=== PATIENT | female | born 1965 | race African-American/Black ===

== ENCOUNTER 2016-03-09 11:41 | Inpatient (IN) | payer MEDICARE ==
[2016-03-09] MEDS ORDERED: LORazepam INJ* 2 MG/ML 1 ML VIAL IV PRN (17:46)
[2016-03-09] MEDS ORDERED: diPHENhydraMINE PO* 25 MG PO PRN (17:46)
[2016-03-09] MEDS ORDERED: Nicotine Lozenge* 4 MG LOZENGE MT PRN (17:46)
[2016-03-09] MEDS ORDERED: HYDROcodone/ACETAMIN 5-325 MG* 1 TAB PO PRN (17:52)
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
[2016-03-09] MEDS: Albuterol HFA INHALER* 8 gm MDI INH SCH (19:47)
[2016-03-09] MEDS: Nicotine Inhaler* 10 MG AMP INH PRN (19:50)
[2016-03-09] MEDS ORDERED: Cariprazine Hcl [Vraylar] 3 MG PO SCH (21:00)
[2016-03-09] MEDS ORDERED: Asenapine(NF) 10 MG TAB.SL SL SCH ×2 (21:00)
[2016-03-09] MEDS: CARIPRAZINE HCL 3 MG PO SCH (21:12)
[2016-03-09] MEDS: Topiramate TAB(*) 100 MG PO SCH (21:13)
[2016-03-09] MEDS: lamoTRIgine TAB(*) 100 MG PO SCH (21:13)
[2016-03-09] MEDS: tiZANidine TAB* 2 MG PO SCH (21:14)
[2016-03-09] MEDS: Lithium Carbonate TAB* 300 MG PO SCH (21:15)
[2016-03-09] MEDS: Mometasone/Formoter 100/5 MDI INH SCH (21:16)
[2016-03-09] MEDS: ASENAPINE 10 MG SL SCH (21:17)
[2016-03-10] MEDS: Albuterol HFA INHALER* 8 gm MDI INH SCH ×4 (01:17→17:28)
[2016-03-10] MEDS: ASENAPINE 10 MG SL SCH ×2 (09:05→21:09)
[2016-03-10] MEDS: Fluticasone NASAL SPRAY 50MCG* 16 gm SPRAY BTL BOTH NARES SCH (09:05)
[2016-03-10] MEDS: Mometasone/Formoter 100/5 MDI INH SCH ×2 (09:06→21:12)
[2016-03-10] MEDS: Topiramate TAB(*) 100 MG PO SCH ×2 (09:08→21:09)
[2016-03-10] MEDS: tiZANidine TAB* 2 MG PO SCH ×4 (09:09→21:09)
[2016-03-10] MEDS: lamoTRIgine TAB(*) 100 MG PO SCH ×2 (09:10→21:11)
[2016-03-10] MEDS: Lithium Carbonate TAB* 300 MG PO SCH ×2 (09:10→21:10)
[2016-03-10] MEDS: Acetaminophen TAB* 325 MG PO PRN ×2 (09:10→21:21)
--- NOTE | 2016-03-10 11:01 | PN ---
Epilepsy Service Progress Note - Subjective Nova reports no episodes overnight. She was curious to know what was seen thus far on the EEG. She is visiting with her friend Rosemarie currently. Rosemarie does not believe she's ever noticed Nova's staring spells, but Nova herself has mentioned to Rosemarie that she has had them in her presence and Rosemarie just thought she was being reflective. - Medications Active Medications: Acetaminophen (Tylenol Tab*) 650 mg PO Q6H PRN PRN Reason: PAIN Last Admin: 03/10/16 09:10 Dose: 650 mg Acetaminophen/Hydrocodone Bitart ([place] 5-325 Tab*) 1 tab PO Q4H PRN PRN Reason: PAIN Albuterol (Ventolin Hfa Inhaler*) 2 puff INH Q6H [facility] Last Admin: 03/10/16 06:43 Dose: 2 puff Asenapine (Saphris(Nf)) 10 mg SL BID [facility] Last Admin: 03/10/16 09:05 Dose: 10 mg Diphenhydramine HCl (Benadryl Po*) 25 mg PO Q6H PRN PRN Reason: ITCHING Fluticasone Propionate (Flonase Nasal [place] 50mcg*) 2 spray BOTH NARES DAILY [facility] Last Admin: 03/10/16 09:05 Dose: 2 spray Lamotrigine (Lamictal Tab(*)) 100 mg PO BID [facility] Last Admin: 03/10/16 09:10 Dose: 100 mg [place] Carbonate ([place] Carbonate Tab*) 600 mg PO BID [facility] Last Admin: 03/10/16 09:10 Dose: 600 mg Lorazepam (Ativan Inj*) 1 mg IV Q8H PRN PRN Reason: Generalized Tonic Clonic Seizu Mometasone Furoate/Formoterol Fumar (Dulera 100/5 Mdi*) 2 puff INH BID [facility] Last Admin: 03/10/16 09:06 Dose: 2 puff Nicotine (Nicotine Inhaler*) 10 mg INH Q2H PRN PRN Reason: CRAVING Last Admin: 03/09/16 19:50 Dose: 10 mg Nicotine Polacrilex (Nicotine Lozenge*) 4 mg MT Q2H PRN PRN Reason: CRAVINGS Pto Cariprazine Hcl ([Vraylar] 3 Mg) 3 mg PO BEDTIME [facility] Last Admin: 03/09/16 21:12 Dose: 3 mg Tizanidine HCl (Zanaflex Tab*) 4 mg PO QID [facility] Last Admin: 03/10/16 09:09 Dose: 4 mg Topiramate (Topamax(*)) 200 mg PO BID [facility] Last Admin: 03/10/16 09:08 Dose: 200 mg EMU Diagnostics - Diagnostic Most Recent Vital Signs: Vital Signs: Temp Pulse Resp BP Pulse Ox 97.3 F 73 18 145/72 100 03/10/16 08:06 03/10/16 08:06 03/10/16 10:00 03/10/16 08:06 03/09/16 19:46 Interim video-EEG long-term monitoring report: #01 03/09: Normal organization, PDR 9 Hz. During sleep, there are rare to occasional epileptiform discharges with spike, polyspike and slow wave components. These are frontocentrally predominant, sometimes biased to the right or left hemisphere but not consistently. They last 0.5 seconds at most. In addition, during sleep, there are occasional sharp waves of low to moderate voltage noted in the left temporal region involving electrodes F7, T1 (FT9) and T3. These can have an arciform morphology and occur in in brief trains lasting 0.5 seconds. No events. No seizures. EMU Exam - Exam Physical/Neurological Exam: Physical Exam: General: Well appearing in no acute distress. MSK: no extremity deformities Neurological Exam: Mental Status: Awake and alert. Oriented to person, place, and time. Fluent. Comprehension intact. Affect appropriate. Cranial Nerves: Versions were full and without nystagmus. Facial musculature and sensation were symmetric. Hearing grossly intact to voice. Palate was upgoing bilaterally. Tongue was midline. Shoulder shrug was symmetric. Motor: Bulk, tone, and strength were normal throughout. There were no abnormal movements. Sensory: Sensation to light touch intact. Coordination: Finger to nose intact. 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 She has also been having episodes of seeing flashing lights followed by various events which can include hand movements or staring as well as headache. These events occur despite the current two drug regimen of antiseizure medications, and so the home doses will be continued at this time. No typical events recorded yet. Plan: * Continue predatory animal exterminator video EEG monitoring to capture typical episodes * Seizure precautions * Continue lamotrigine 100mg BID and Topamax 200mg BID * If no events by tomorrow morning, will sleep deprive patient tomorrow night * Other potential triggers include photic stimulation and being overheated * IV lorazepam as needed for GTC or prolonged seizure >3 mins * Continue other prescribed home meds. Will verify Saphris dosing with Dr Carter's office on Saturday
--- NOTE | 2016-03-10 11:13 | EEG ---
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 She currently experiences several types of spells, some of which have not previously been characterized on long-term monitoring. These include staring spells, spells of missing chunks of time and more recent spells of seeing flashes of light for a few seconds followed by various things which can include bilateral hand movements, staring and/or headache. She has also been having more headaches in general lately. Long-term monitoring was undertaken in order to characterize the above three spell types. Introduction: INTRODUCTION: The EEG was monitored from 21 scalp electrodes. Nineteen electrodes consisted of the standard parasagittal, temporal and midline leads of the International 10 -20 system. In addition, special electrodes FT9 and FT10 were placed. EEG data were recorded on an [employer] system with simultaneous MPEG-4 digital video recording of patient behavior. EEG recording was in a monopolar montage with all electrodes referenced to FCz. Significant behavioral events were signaled by an event button, or putative electrical seizure events were detected by a computer program. All EEG data were reviewed in their entirety on a monitor with reconstruction of montages and adjustments of sensitivity and filtering. Simultaneous patient behavior was viewed on an adjacent monitor and correlated with the EEG. - Medications Active Medications: Acetaminophen (Tylenol Tab*) 650 mg PO Q6H PRN PRN Reason: PAIN Last Admin: 03/10/16 09:10 Dose: 650 mg Acetaminophen/Hydrocodone Bitart ([place] 5-325 Tab*) 1 tab PO Q4H PRN PRN Reason: PAIN Albuterol (Ventolin Hfa Inhaler*) 2 puff INH Q6H [facility] Last Admin: 03/10/16 06:43 Dose: 2 puff Asenapine (Saphris(Nf)) 10 mg SL BID [facility] Last Admin: 03/10/16 09:05 Dose: 10 mg Diphenhydramine HCl (Benadryl Po*) 25 mg PO Q6H PRN PRN Reason: ITCHING Fluticasone Propionate (Flonase Nasal [place] 50mcg*) 2 spray BOTH NARES DAILY [facility] Last Admin: 03/10/16 09:05 Dose: 2 spray Lamotrigine (Lamictal Tab(*)) 100 mg PO BID [facility] Last Admin: 03/10/16 09:10 Dose: 100 mg [place] Carbonate ([place] Carbonate Tab*) 600 mg PO BID [facility] Last Admin: 03/10/16 09:10 Dose: 600 mg Lorazepam (Ativan Inj*) 1 mg IV Q8H PRN PRN Reason: Generalized Tonic Clonic Seizu Mometasone Furoate/Formoterol Fumar ([place] 100/5 Mdi*) 2 puff INH BID [facility] Last Admin: 03/10/16 09:06 Dose: 2 puff Nicotine (Nicotine Inhaler*) 10 mg INH Q2H PRN PRN Reason: CRAVING Last Admin: 03/09/16 19:50 Dose: 10 mg Nicotine Polacrilex (Nicotine Lozenge*) 4 mg MT Q2H PRN PRN Reason: CRAVINGS Pto Cariprazine Hcl ([Vraylar] 3 Mg) 3 mg PO BEDTIME [facility] Last Admin: 03/09/16 21:12 Dose: 3 mg Tizanidine HCl (Zanaflex Tab*) 4 mg PO QID [facility] Last Admin: 03/10/16 09:09 Dose: 4 mg Topiramate (Topamax(*)) 200 mg PO BID [facility] Last Admin: 03/10/16 09:08 Dose: 200 mg - Description Background: The waking background showed appropriate organization with clearly defined anterior-posterior voltage and frequency gradients. There was a defined posterior dominant rhythm of 9 Hertz, which was symmetrical and showed normal reactivity. Anteriorly, there was the expected pattern of lower voltage and more irregular theta and beta rhythms. The sleep background was appropriately organized with well-developed spindles and vertex waves indicative of stage 2 sleep. These sleep transients showed appropriate morphology and were bilaterally synchronous and symmetrical. Development of diffuse delta range frequencies with dropout of stage 2 architecture accompanied transition to slow wave sleep, and a lower voltage mixed frequency pattern associated with eye movements was consistent with REM sleep. Intericatal Epileptiform Activity: #01 03/09: During sleep, there are occasional epileptiform discharges with spike , polyspike and slow wave components. These are frontocentrally predominant, sometimes biased to the right or left hemisphere but not consistently. They last 0.5 seconds at most. In addition, during sleep, there are occasional sharp waves of low to moderate voltage noted in the left temporal region involving electrodes F7, T1 (FT9) and T3. These can have an arciform morphology and occur in in brief trains lasting 0.5 seconds. They are most consistent with wicket waveforms, a benign variant. #02 03/10: same as above except rare generalized discharge fragments seen during waking during early portion of recording. In addition, some discharge complexes last up to 1 second during drowsiness and sleep. They occur at a frequency of 3- 4 Hz. There are no clinical correlates to these discharges. #03 03/11: same as above, no changes #04 03/12: same as above, no changes #05 03/13: Same as above. Photic induction was performed and was negative for inducing an event. During 6 Hz stimulation on the second round of the photic protocol, there was a 1 second burst of generalized spike and polyspike discharges, but this was not seen during the first round of photic induction at 6Hz. #06 03/14: Same as above, no changes #07 03/15: Same as above, no changes. Ictal Activity: #01 03/09: None #02 03/10: No ictal activity The patient had 2 episodes of "overhwhelming sleep", where she suddenly felt extremely tired and reported she could not keep her eyes open. The first occurred at 14:08 and the second at 21:59. She was fully responsive during both of these episodes, able to state her name, follow commands and recall a phrase given to her to remember (green cat). There was no change in background EEG during these episodes. EEG did show a drowsy pattern prior to each of these. #03 03/11: No ictal activity, no patient events. Pt was sleep deprived the night of 03/11. #04 03/12: No ictal activity. Patient pressed the event button at 09:25, while she had been talking to her nurse, when she had the perception that she was having difficulty getting her words out. She was able to follow commands and remember a recall phrase. There was no EEG change with this event. #05 03/13: No ictal activity. Photic stimulation was performed and the patient reported feeling somewhat spacey at the beginning of the procedure, but did not have a full episode. Two rounds of photic were completed and during the second round, there was a 1 second burst of generalized discharges with spike and polyspike components at 6 Hz. No clinical correlate to this burst. #06 03/14: No ictal activity, no patient events. #07: 03/15: No ictal activity, no patient events. During the course of the monitoring session, the patient has mentioned on at least 2 occasions that she has woken up with her tongue bruised. There has been no occult seizure activity during the night witnessed to account for this oral trauma. - Impression Impression: This is an abnormal long-term monitoring session due to the presence of occasional generalized epileptiform discharges which are most frequent during drowsiness and sleep, but are also rarely seen during waking. There are no clinical correlates to this activity. These findings are consistent with the patient's known epilepsy, which is most likely a genetic generalized epilepsy. There were no seizures during the monitoring session. Events of overwhelming need to sleep and difficulty getting words out were captured during the session and were non-epileptic in nature. Unfortunately, episodes of staring and missing chunks of time were not captured during this session. In addition, the newer episodes of flashes of light followed by hand movements, staring or headache were not captured either. Therefore, the nature of these events remains uncertain. The monitoring session is inconclusive in this regard.
[2016-03-10] MEDS: Nicotine Inhaler* 10 MG AMP INH PRN ×2 (12:31→23:50)
[2016-03-10] MEDS: CARIPRAZINE HCL 3 MG PO SCH (21:11)
[2016-03-11] MEDS: Albuterol HFA INHALER* 8 gm MDI INH SCH ×3 (06:55→17:21)
[2016-03-11] MEDS: lamoTRIgine TAB(*) 100 MG PO SCH ×2 (08:30→19:54)
[2016-03-11] MEDS: Lithium Carbonate TAB* 300 MG PO SCH ×2 (08:31→19:54)
[2016-03-11] MEDS: tiZANidine TAB* 2 MG PO SCH ×4 (08:31→19:53)
[2016-03-11] MEDS: ASENAPINE 10 MG SL SCH ×2 (08:32→19:57)
[2016-03-11] MEDS: Topiramate TAB(*) 100 MG PO SCH ×2 (08:32→19:53)
[2016-03-11] MEDS: Mometasone/Formoter 100/5 MDI INH SCH ×2 (08:35→19:54)
[2016-03-11] MEDS: Fluticasone NASAL SPRAY 50MCG* 16 gm SPRAY BTL BOTH NARES SCH (08:36)
--- NOTE | 2016-03-11 10:39 | PN ---
Epilepsy Service Progress Note - Subjective Pt reports she slept well overall last night but did wake several times. She had 2 episodes of overwhelming sleepiness. These have been captured on prior LTMs as well. No staring episodes or episodes of missing chunks of time. - Medications Active Medications: Acetaminophen (Tylenol Tab*) 650 mg PO Q6H PRN PRN Reason: PAIN Last Admin: 03/10/16 21:21 Dose: 650 mg Acetaminophen/Hydrocodone Bitart ([place] 5-325 Tab*) 1 tab PO Q4H PRN PRN Reason: PAIN Albuterol (Ventolin Hfa Inhaler*) 2 puff INH Q6H [facility] Last Admin: 03/11/16 06:55 Dose: 2 puff Asenapine (Saphris(Nf)) 10 mg SL BID [facility] Last Admin: 03/11/16 08:32 Dose: 10 mg Diphenhydramine HCl (Benadryl Po*) 25 mg PO Q6H PRN PRN Reason: ITCHING Fluticasone Propionate (Flonase Nasal [place] 50mcg*) 2 spray BOTH NARES DAILY [facility] Last Admin: 03/11/16 08:36 Dose: 2 spray Lamotrigine (Lamictal Tab(*)) 100 mg PO BID [facility] Last Admin: 03/11/16 08:30 Dose: 100 mg [place] Carbonate ([place] Carbonate Tab*) 600 mg PO BID [facility] Last Admin: 03/11/16 08:31 Dose: 600 mg Lorazepam (Ativan Inj*) 1 mg IV Q8H PRN PRN Reason: Generalized Tonic Clonic Seizu Mometasone Furoate/Formoterol Fumar (Dulera 100/5 Mdi*) 2 puff INH BID [facility] Last Admin: 03/10/16 21:12 Dose: 2 puff Nicotine (Nicotine Inhaler*) 10 mg INH Q2H PRN PRN Reason: CRAVING Last Admin: 03/10/16 23:50 Dose: 10 mg Nicotine Polacrilex (Nicotine Lozenge*) 4 mg MT Q2H PRN PRN Reason: CRAVINGS Pto Cariprazine Hcl ([Vraylar] 3 Mg) 3 mg PO BEDTIME [facility] Last Admin: 03/10/16 21:11 Dose: 3 mg Tizanidine HCl (Zanaflex Tab*) 4 mg PO QID [facility] Last Admin: 03/11/16 08:31 Dose: 4 mg Topiramate (Topamax(*)) 200 mg PO BID [facility] Last Admin: 03/11/16 08:32 Dose: 200 mg EMU Diagnostics - Diagnostic Most Recent Vital Signs: Vital Signs: Temp Pulse Resp BP Pulse Ox 99.4 F 89 16 144/81 100 03/11/16 07:00 03/11/16 07:00 03/11/16 08:00 03/11/16 07:00 03/11/16 07:00 Interim video-EEG long-term monitoring report: #01 03/09: Normal organization, PDR 9 Hz. During sleep, there are rare to occasional epileptiform discharges with spike, polyspike and slow wave components. These are frontocentrally predominant, sometimes biased to the right or left hemisphere but not consistently. They last 0.5 seconds at most. In addition, during sleep, there are occasional sharp waves of low to moderate voltage noted in the left temporal region involving electrodes F7, T1 (FT9) and T3. These can have an arciform morphology and occur in in brief trains lasting 0.5 seconds. No events. No seizures. #02 03/10: Same as above except some rare fragmented generalized discharges noted during waking. Two episodes of overwhelming sleepiness not associated with any EEG changes. Pt remained fully responsive and able to remember a recall phrase. EMU Exam - Exam Physical/Neurological Exam: Physical Exam: General: Well appearing in no acute distress. MSK: no extremity deformities Neurological Exam: Mental Status: Awake and alert. Oriented to person, place, and time. Fluent. Comprehension intact. Affect appropriate. Cranial Nerves: Versions were full and without nystagmus. Facial musculature and sensation were symmetric. Hearing grossly intact to voice. Palate was upgoing bilaterally. Tongue was midline. Shoulder shrug was symmetric. Motor: Bulk, tone, and strength were normal throughout. There were no abnormal movements. Sensory: Sensation to light touch intact. Coordination: Finger to nose intact. 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 She has also been having episodes of seeing flashing lights followed by various events which can include hand movements or staring as well as headache. These events occur despite the current two drug regimen of antiseizure medications, and so the home doses will be continued at this time. No typical events recorded yet. Two events of overwhelming sleep captured, which have been previously characterized as non-epileptic. Plan: * Continue halfway video EEG monitoring to capture typical episodes * Seizure precautions * Continue lamotrigine 100mg BID and Topamax 200mg BID * Sleep deprive tonight to 4 hours. * Increased room temperature as being overheated can also trigger events for patient. * Other potential triggers include photic stimulation * IV lorazepam as needed for GTC or prolonged seizure >3 mins * Continue other prescribed home meds. Will verify Saphris dosing with Dr Carter's office on Saturday or Saturday if closed on
[2016-03-11] MEDS: Acetaminophen TAB* 325 MG PO PRN (17:25)
[2016-03-11] MEDS: CARIPRAZINE HCL 3 MG PO SCH (19:55)
[2016-03-11] MEDS: Nicotine Inhaler* 10 MG AMP INH PRN (23:28)
[2016-03-12] MEDS: Albuterol HFA INHALER* 8 gm MDI INH SCH ×6 (00:02→23:14)
[2016-03-12] MEDS: Mometasone/Formoter 100/5 MDI INH SCH ×2 (09:03→21:12)
[2016-03-12] MEDS: Fluticasone NASAL SPRAY 50MCG* 16 gm SPRAY BTL BOTH NARES SCH (09:06)
[2016-03-12] MEDS: Topiramate TAB(*) 100 MG PO SCH ×2 (09:06→21:12)
[2016-03-12] MEDS: Lithium Carbonate TAB* 300 MG PO SCH ×2 (09:07→21:11)
[2016-03-12] MEDS: lamoTRIgine TAB(*) 100 MG PO SCH ×2 (09:07→21:12)
[2016-03-12] MEDS: tiZANidine TAB* 2 MG PO SCH ×4 (09:08→21:11)
[2016-03-12] MEDS: Acetaminophen TAB* 325 MG PO PRN (09:08)
[2016-03-12] MEDS: ASENAPINE 10 MG SL SCH ×2 (09:09→21:14)
--- NOTE | 2016-03-12 10:16 | PN ---
Epilepsy Service Progress Note - Hernando Bhatt sleep deprived overnight and is tired today. She's aware she should not nap today. She noticed her tongue is bruised but isn't sure when this occurred. She is anxious to get back on her Saphris 20mg nighttime dose because she says she is seeing things, "crawly" things. Tried calling Dr. Carter's office this AM, no answer. - Medications Active Medications: Acetaminophen (Tylenol Tab*) 650 mg PO Q6H PRN PRN Reason: PAIN Last Admin: 03/12/16 09:08 Dose: 650 mg Acetaminophen/Hydrocodone Bitart ([place] 5-325 Tab*) 1 tab PO Q4H PRN PRN Reason: PAIN Albuterol (Ventolin Hfa Inhaler*) 2 puff INH Q6H [facility] Last Admin: 03/12/16 06:02 Dose: 2 puff Asenapine (Saphris(Nf)) 10 mg SL BID [facility] Last Admin: 03/12/16 09:09 Dose: 10 mg Diphenhydramine HCl (Benadryl Po*) 25 mg PO Q6H PRN PRN Reason: ITCHING Fluticasone Propionate (Flonase Nasal [place] 50mcg*) 2 spray BOTH NARES DAILY [facility] Last Admin: 03/12/16 09:06 Dose: 2 spray Lamotrigine (Lamictal Tab(*)) 100 mg PO BID [facility] Last Admin: 03/12/16 09:07 Dose: 100 mg [place] Carbonate ([place] Carbonate Tab*) 600 mg PO BID [facility] Last Admin: 03/12/16 09:07 Dose: 600 mg Lorazepam (Ativan Inj*) 1 mg IV Q8H PRN PRN Reason: Generalized Tonic Clonic Seizu Mometasone Furoate/Formoterol Fumar (Dulera 100/5 Mdi*) 2 puff INH BID [facility] Last Admin: 03/12/16 09:03 Dose: 2 puff Nicotine (Nicotine Inhaler*) 10 mg INH Q2H PRN PRN Reason: CRAVING Last Admin: 03/11/16 23:28 Dose: 10 mg Nicotine Polacrilex (Nicotine Lozenge*) 4 mg MT Q2H PRN PRN Reason: CRAVINGS Pto Cariprazine Hcl ([Vraylar] 3 Mg) 3 mg PO BEDTIME [facility] Last Admin: 03/11/16 19:55 Dose: 3 mg Tizanidine HCl (Zanaflex Tab*) 4 mg PO QID [facility] Last Admin: 03/12/16 09:08 Dose: 4 mg Topiramate (Topamax(*)) 200 mg PO BID [facility] Last Admin: 03/12/16 09:06 Dose: 200 mg EMU Diagnostics - Diagnostic Most Recent Vital Signs: Vital Signs: Temp Pulse Resp BP Pulse Ox 99.3 F 94 18 131/75 99 03/12/16 09:48 03/12/16 09:48 03/12/16 09:48 03/12/16 09:48 03/12/16 09:48 Interim video-EEG long-term monitoring report: #01 03/09: Normal organization, PDR 9 Hz. During sleep, there are rare to occasional epileptiform discharges with spike, polyspike and slow wave components. These are frontocentrally predominant, sometimes biased to the right or left hemisphere but not consistently. They last 0.5 seconds at most. In addition, during sleep, there are occasional sharp waves of low to moderate voltage noted in the left temporal region involving electrodes F7, T1 (FT9) and T3. These can have an arciform morphology and occur in in brief trains lasting 0.5 seconds. No events. No seizures. #02 03/10: Same as above except some rare fragmented generalized discharges noted during waking. Two episodes of overwhelming sleepiness not associated with any EEG changes. Pt remained fully responsive and able to remember a recall phrase. #03 03/11: Same as above, no events, no seizures EMU Exam - Exam Physical/Neurological Exam: Physical Exam: General: Well appearing in no acute distress. MSK: no extremity deformities Neurological Exam: Mental Status: Awake and alert. Oriented to person, place, and time. Fluent. Comprehension intact. Affect appropriate. Cranial Nerves: Versions were full and without nystagmus. Facial musculature and sensation were symmetric. Hearing grossly intact to voice. Palate was upgoing bilaterally. Tongue was midline. Shoulder shrug was symmetric. Motor: Bulk, tone, and strength were normal throughout. There were no abnormal movements. Sensory: Sensation to light touch intact. Coordination: Finger to nose intact. 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 She has also been having episodes of seeing flashing lights followed by various events which can include hand movements or staring as well as headache. These events occur despite the current two drug regimen of antiseizure medications, and so the home doses will be continued at this time. No typical events recorded yet. Two events of overwhelming sleep captured, which have been previously characterized as non-epileptic. She feels she might be deteriorating psychiatrically. Tried to get in touch with Dr. Carter's office but possibly closed due to [place] . Spoke with Dr Burr who said a 20mg dose at night would be reasonably, so will increase the nighttime dose and verify with Dr. Carter's office tomorrow. Plan: * Continue laundry route driver video EEG monitoring to capture typical episodes * Seizure precautions * Continue lamotrigine 100mg BID and Topamax 200mg BID * No naps today. * Continue increased room temperature as being overheated can also trigger events for patient. * Other potential triggers include photic stimulation - will perform tomorrow if no events today * IV lorazepam as needed for GTC or prolonged seizure >3 mins * Continue other prescribed home meds, increase hs Saphris to 20mg. Will verify Saphris dosing with Dr Carter's office on Saturday
[2016-03-12] MEDS ORDERED: Saline NASAL SPRAY 0.65%* BTL BOTH NARES PRN (10:17)
[2016-03-12] MEDS: Nicotine Inhaler* 10 MG AMP INH PRN (21:10)
[2016-03-12] MEDS: CARIPRAZINE HCL 3 MG PO SCH (21:16)
[2016-03-13] MEDS: Albuterol HFA INHALER* 8 gm MDI INH SCH ×3 (06:20→17:30)
[2016-03-13] MEDS: Fluticasone NASAL SPRAY 50MCG* 16 gm SPRAY BTL BOTH NARES SCH (09:09)
[2016-03-13] MEDS: Mometasone/Formoter 100/5 MDI INH SCH ×2 (09:10→21:11)
[2016-03-13] MEDS: Topiramate TAB(*) 100 MG PO SCH ×2 (09:11→21:11)
[2016-03-13] MEDS: lamoTRIgine TAB(*) 100 MG PO SCH ×2 (09:12→21:11)
[2016-03-13] MEDS: tiZANidine TAB* 2 MG PO SCH ×4 (09:12→21:10)
[2016-03-13] MEDS: Acetaminophen TAB* 325 MG PO PRN (09:13)
[2016-03-13] MEDS: Lithium Carbonate TAB* 300 MG PO SCH ×2 (09:13→21:10)
[2016-03-13] MEDS: Nicotine Inhaler* 10 MG AMP INH PRN ×2 (09:14→21:09)
[2016-03-13] MEDS: ASENAPINE 10 MG SL SCH ×2 (09:15→21:10)
[2016-03-13] MEDS ORDERED: Docusate CAP* 100 MG PO PRN (10:34)
--- NOTE | 2016-03-13 10:39 | PN ---
Epilepsy Service Progress Note - Subjective Pt had an event yesterday morning of feeling like she couldn't get her words out. No further events. Has not had a BM since 03/07. Sometimes takes Colace at home. - Medications Active Medications: Acetaminophen (Tylenol Tab*) 650 mg PO Q6H PRN PRN Reason: PAIN Last Admin: 03/13/16 09:13 Dose: 650 mg Acetaminophen/Hydrocodone Bitart ([place] 5-325 Tab*) 1 tab PO Q4H PRN PRN Reason: PAIN Albuterol (Ventolin Hfa Inhaler*) 2 puff INH Q6H [facility] Last Admin: 03/13/16 06:20 Dose: 2 puff Asenapine (Saphris(Nf)) 20 mg SL BEDTIME [facility] Last Admin: 03/12/16 21:14 Dose: 20 mg Asenapine (Saphris(Nf)) 10 mg SL DAILY [facility] Diphenhydramine HCl (Benadryl Po*) 25 mg PO Q6H PRN PRN Reason: ITCHING Fluticasone Propionate (Flonase Nasal [place] 50mcg*) 2 spray BOTH NARES DAILY [facility] Last Admin: 03/13/16 09:09 Dose: 2 spray Lamotrigine (Lamictal Tab(*)) 100 mg PO BID [facility] Last Admin: 03/13/16 09:12 Dose: 100 mg [place] Carbonate ([place] Carbonate Tab*) 600 mg PO BID [facility] Last Admin: 03/13/16 09:13 Dose: 600 mg Lorazepam (Ativan Inj*) 1 mg IV Q8H PRN PRN Reason: Generalized Tonic Clonic Seizu Mometasone Furoate/Formoterol Fumar (Dulera 100/5 Mdi*) 2 puff INH BID [facility] Last Admin: 03/13/16 09:10 Dose: 2 puff Nicotine (Nicotine Inhaler*) 10 mg INH Q2H PRN PRN Reason: CRAVING Last Admin: 03/13/16 09:14 Dose: 10 mg Nicotine Polacrilex (Nicotine Lozenge*) 4 mg MT Q2H PRN PRN Reason: CRAVINGS Pto Cariprazine Hcl ([Vraylar] 3 Mg) 3 mg PO BEDTIME [facility] Last Admin: 03/12/16 21:16 Dose: Not Given Sodium Chloride (Sodium Chloride 0.65% Nasal [place]*) 1 spray BOTH NARES Q4H PRN PRN Reason: DISCOMFORT Tizanidine HCl (Zanaflex Tab*) 4 mg PO QID [facility] Last Admin: 03/13/16 09:12 Dose: 4 mg Topiramate (Topamax(*)) 200 mg PO BID [facility] Last Admin: 03/13/16 09:11 Dose: 200 mg EMU Diagnostics - Diagnostic Most Recent Vital Signs: Vital Signs: Temp Pulse Resp BP Pulse Ox 98.5 F 81 18 137/83 100 03/13/16 07:46 03/13/16 07:46 03/13/16 08:00 03/13/16 07:46 03/13/16 07:46 Interim video-EEG long-term monitoring report: #01 03/09: Normal organization, PDR 9 Hz. During sleep, there are rare to occasional epileptiform discharges with spike, polyspike and slow wave components. These are frontocentrally predominant, sometimes biased to the right or left hemisphere but not consistently. They last 0.5 seconds at most. In addition, during sleep, there are occasional sharp waves of low to moderate voltage noted in the left temporal region involving electrodes F7, T1 (FT9) and T3. These can have an arciform morphology and occur in in brief trains lasting 0.5 seconds. No events. No seizures. #02 03/10: Same as above except some rare fragmented generalized discharges noted during waking. Two episodes of overwhelming sleepiness not associated with any EEG changes. Pt remained fully responsive and able to remember a recall phrase. #03 03/11: Same as above, no events, no seizures #04 03/12: Same as above. One event at ~0930 of feeling like she couldn't her words out. No associated EEG change. EMU Exam - Exam Physical/Neurological Exam: Physical Exam: General: Well appearing in no acute distress. MSK: no extremity deformities Neurological Exam: Mental Status: Awake and alert. Oriented to person, place, and time. Fluent. Comprehension intact. Affect appropriate. Cranial Nerves: Versions were full and without nystagmus. Facial musculature and sensation were symmetric. Hearing grossly intact to voice. Palate was upgoing bilaterally. Tongue was midline. Shoulder shrug was symmetric. Motor: Bulk, tone, and strength were normal throughout. There were no abnormal movements. Sensory: Sensation to light touch intact. Coordination: Finger to nose intact. 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 She has also been having episodes of seeing flashing lights followed by various events which can include hand movements or staring as well as headache. These events occur despite the current two drug regimen of antiseizure medications, and so the home doses will be continued at this time. No typical events recorded yet. Two events of overwhelming sleep captured, which have been previously characterized as non-epileptic. One event of not being able to get words out also captured, non-epileptic. Spoke with Dr Carter's office, dose of Saphris verified to be 10mg QAM and 20mg QPM. Plan: * Continue correction video EEG monitoring to capture typical episodes * Seizure precautions * Continue lamotrigine 100mg BID and Topamax 200mg BID * No naps today. * Continue increased room temperature as being overheated can also trigger events for patient. * Other potential triggers include photic stimulation - will perform tomorrow if no events today * IV lorazepam as needed for GTC or prolonged seizure >3 mins * Continue other prescribed home meds, including Saphris at 10mg QAM and 20mg QPM
[2016-03-13] MEDS: CARIPRAZINE HCL 3 MG PO SCH ×2 (21:01→21:20)
[2016-03-14] MEDS: Albuterol HFA INHALER* 8 gm MDI INH SCH ×5 (02:43→23:37)
[2016-03-14] MEDS: Nicotine Inhaler* 10 MG AMP INH PRN ×2 (05:50→20:58)
[2016-03-14] MEDS: Fluticasone NASAL SPRAY 50MCG* 16 gm SPRAY BTL BOTH NARES SCH (08:25)
[2016-03-14] MEDS: ASENAPINE 10 MG SL SCH ×2 (08:25→20:58)
[2016-03-14] MEDS: tiZANidine TAB* 2 MG PO SCH ×4 (08:26→20:58)
[2016-03-14] MEDS: Mometasone/Formoter 100/5 MDI INH SCH ×2 (08:27→20:59)
[2016-03-14] MEDS: lamoTRIgine TAB(*) 100 MG PO SCH ×2 (08:27→20:58)
[2016-03-14] MEDS: Lithium Carbonate TAB* 300 MG PO SCH ×2 (08:27→20:59)
[2016-03-14] MEDS: Topiramate TAB(*) 100 MG PO SCH ×2 (08:29→21:01)
--- NOTE | 2016-03-14 11:16 | PN ---
Epilepsy Service Progress Note - Subjective Pt has not had any episodes. Slept a little better last night. Says that sometimes riding a bike or using a treadmill can trigger an event and asks if we have any exercise equipment. - Medications Active Medications: Acetaminophen (Tylenol Tab*) 650 mg PO Q6H PRN PRN Reason: PAIN Last Admin: 03/13/16 09:13 Dose: 650 mg Acetaminophen/Hydrocodone Bitart ([place] 5-325 Tab*) 1 tab PO Q4H PRN PRN Reason: PAIN Albuterol (Ventolin Hfa Inhaler*) 2 puff INH Q6H [facility] Last Admin: 03/14/16 05:50 Dose: 2 puff Asenapine (Saphris(Nf)) 20 mg SL BEDTIME [facility] Last Admin: 03/13/16 21:10 Dose: 20 mg Asenapine (Saphris(Nf)) 10 mg SL DAILY [facility] Last Admin: 03/14/16 08:25 Dose: 10 mg Diphenhydramine HCl (Benadryl Po*) 25 mg PO Q6H PRN PRN Reason: ITCHING Docusate Sodium (Colace Cap*) 100 mg PO BID PRN PRN Reason: CONSTIPATION Last Admin: 03/13/16 12:29 Dose: 100 mg Fluticasone Propionate (Flonase Nasal [place] 50mcg*) 2 spray BOTH NARES DAILY [facility] Last Admin: 03/14/16 08:25 Dose: 2 spray Lamotrigine (Lamictal Tab(*)) 100 mg PO BID [facility] Last Admin: 03/14/16 08:27 Dose: 100 mg [place] Carbonate ([place] Carbonate Tab*) 600 mg PO BID [facility] Last Admin: 03/14/16 08:27 Dose: 600 mg Lorazepam (Ativan Inj*) 1 mg IV Q8H PRN PRN Reason: Generalized Tonic Clonic Seizu Mometasone Furoate/Formoterol Fumar (Dulera 100/5 Mdi*) 2 puff INH BID [facility] Last Admin: 03/14/16 08:27 Dose: 2 puff Nicotine (Nicotine Inhaler*) 10 mg INH Q2H PRN PRN Reason: CRAVING Last Admin: 03/14/16 05:50 Dose: 10 mg Nicotine Polacrilex (Nicotine Lozenge*) 4 mg MT Q2H PRN PRN Reason: CRAVINGS Pto Cariprazine Hcl ([Vraylar] 3 Mg) 3 mg PO BEDTIME [facility] Last Admin: 03/13/16 21:20 Dose: 3 mg Sodium Chloride (Sodium Chloride 0.65% Nasal [place]*) 1 spray BOTH NARES Q4H PRN PRN Reason: DISCOMFORT Tizanidine HCl (Zanaflex Tab*) 4 mg PO QID [facility] Last Admin: 03/14/16 08:26 Dose: 4 mg Topiramate (Topamax(*)) 200 mg PO BID [facility] Last Admin: 03/14/16 08:29 Dose: 200 mg EMU Diagnostics - Diagnostic Most Recent Vital Signs: Vital Signs: Temp Pulse Resp BP Pulse Ox 99.6 F 81 16 145/73 100 03/14/16 07:59 03/14/16 07:59 03/14/16 07:59 03/14/16 07:59 03/14/16 07:59 Interim video-EEG long-term monitoring report: #01 03/09: Normal organization, PDR 9 Hz. During sleep, there are rare to occasional epileptiform discharges with spike, polyspike and slow wave components. These are frontocentrally predominant, sometimes biased to the right or left hemisphere but not consistently. They last 0.5 seconds at most. In addition, during sleep, there are occasional sharp waves of low to moderate voltage noted in the left temporal region involving electrodes F7, T1 (FT9) and T3. These can have an arciform morphology and occur in in brief trains lasting 0.5 seconds. No events. No seizures. #02 03/10: Same as above except some rare fragmented generalized discharges noted during waking. Two episodes of overwhelming sleepiness not associated with any EEG changes. Pt remained fully responsive and able to remember a recall phrase. #03 03/11: Same as above, no events, no seizures #04 03/12: Same as above. One event at ~0930 of feeling like she couldn't her words out. No associated EEG change. #05 03/13: Same as above. Photic induction performed and was negative. There was a single 1 second burst of discharges during the second round of photic at 6 Hz , no clinical correlate, did not happen at 6Hz with the first round. EMU Exam - Exam Physical/Neurological Exam: Physical Exam: General: Well appearing in no acute distress. MSK: no extremity deformities Neurological Exam: Mental Status: Awake and alert. Oriented to person, place, and time. Fluent. Comprehension intact. Affect appropriate. Cranial Nerves: Versions were full and without nystagmus. Facial musculature and sensation were symmetric. Hearing grossly intact to voice. Palate was upgoing bilaterally. Tongue was midline. Shoulder shrug was symmetric. Motor: Bulk, tone, and strength were normal throughout. There were no abnormal movements. Sensory: Sensation to light touch intact. Coordination: Finger to nose intact. 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 She has also been having episodes of seeing flashing lights followed by various events which can include hand movements or staring as well as headache. These events occur despite the current two drug regimen of antiseizure medications, and so the home doses will be continued at this time. No typical events recorded yet. Two events of overwhelming sleep captured, which have been previously characterized as non-epileptic. One event of not being able to get words out also captured, non-epileptic. Photic induction negative. Spoke with Dr Carter's office, dose of Saphris verified to be 10mg QAM and 20mg QPM. Plan: * Continue long term care social worker video EEG monitoring to capture typical episodes * Seizure precautions * Continue lamotrigine 100mg BID and Topamax 200mg BID * will get hand bike for pt to use * IV lorazepam as needed for GTC or prolonged seizure >3 mins * Continue other prescribed home meds, including Saphris at 10mg QAM and 20mg QPM
[2016-03-14] MEDS: CARIPRAZINE HCL 3 MG PO SCH (21:00)
[2016-03-15] MEDS: Albuterol HFA INHALER* 8 gm MDI INH SCH ×4 (06:21→23:46)
[2016-03-15] MEDS: Mometasone/Formoter 100/5 MDI INH SCH ×2 (08:25→20:35)
[2016-03-15] MEDS: Fluticasone NASAL SPRAY 50MCG* 16 gm SPRAY BTL BOTH NARES SCH (08:26)
[2016-03-15] MEDS: lamoTRIgine TAB(*) 100 MG PO SCH ×2 (08:27→20:35)
[2016-03-15] MEDS: Lithium Carbonate TAB* 300 MG PO SCH ×2 (08:27→20:35)
[2016-03-15] MEDS: ASENAPINE 10 MG SL SCH ×2 (08:27→20:34)
[2016-03-15] MEDS: Topiramate TAB(*) 100 MG PO SCH ×2 (08:28→20:37)
[2016-03-15] MEDS: tiZANidine TAB* 2 MG PO SCH ×4 (08:28→20:36)
--- NOTE | 2016-03-15 11:33 | PN ---
Epilepsy Service Progress Note - Subjective No overnight events. Patient started using exercise bike this morning, is enjoying it. - Medications Active Medications: Acetaminophen (Tylenol Tab*) 650 mg PO Q6H PRN PRN Reason: PAIN Last Admin: 03/13/16 09:13 Dose: 650 mg Acetaminophen/Hydrocodone Bitart ([place] 5-325 Tab*) 1 tab PO Q4H PRN PRN Reason: PAIN Albuterol (Ventolin Hfa Inhaler*) 2 puff INH Q6H [facility] Last Admin: 03/15/16 06:21 Dose: 2 puff Asenapine (Saphris(Nf)) 20 mg SL BEDTIME [facility] Last Admin: 03/14/16 20:58 Dose: 20 mg Asenapine (Saphris(Nf)) 10 mg SL DAILY [facility] Last Admin: 03/15/16 08:27 Dose: 10 mg Diphenhydramine HCl (Benadryl Po*) 25 mg PO Q6H PRN PRN Reason: ITCHING Docusate Sodium (Colace Cap*) 100 mg PO BID PRN PRN Reason: CONSTIPATION Last Admin: 03/13/16 12:29 Dose: 100 mg Fluticasone Propionate (Flonase Nasal [place] 50mcg*) 2 spray BOTH NARES DAILY [facility] Last Admin: 03/15/16 08:26 Dose: 2 spray Lamotrigine (Lamictal Tab(*)) 100 mg PO BID [facility] Last Admin: 03/15/16 08:27 Dose: 100 mg [place] Carbonate ([place] Carbonate Tab*) 600 mg PO BID [facility] Last Admin: 03/15/16 08:27 Dose: 600 mg Lorazepam (Ativan Inj*) 1 mg IV Q8H PRN PRN Reason: Generalized Tonic Clonic Seizu Mometasone Furoate/Formoterol Fumar (Dulera 100/5 Mdi*) 2 puff INH BID [facility] Last Admin: 03/15/16 08:25 Dose: 2 puff Nicotine (Nicotine Inhaler*) 10 mg INH Q2H PRN PRN Reason: CRAVING Last Admin: 03/14/16 20:58 Dose: 10 mg Nicotine Polacrilex (Nicotine Lozenge*) 4 mg MT Q2H PRN PRN Reason: CRAVINGS Pto Cariprazine Hcl ([Vraylar] 3 Mg) 3 mg PO BEDTIME [facility] Last Admin: 03/14/16 21:00 Dose: 3 mg Sodium Chloride (Sodium Chloride 0.65% Nasal [place]*) 1 spray BOTH NARES Q4H PRN PRN Reason: DISCOMFORT Tizanidine HCl (Zanaflex Tab*) 4 mg PO QID [facility] Last Admin: 03/15/16 08:28 Dose: 4 mg Topiramate (Topamax(*)) 200 mg PO BID [facility] Last Admin: 03/15/16 08:28 Dose: 200 mg EMU Diagnostics - Diagnostic Most Recent Vital Signs: Vital Signs: Temp Pulse Resp BP Pulse Ox 97.9 F 81 18 129/82 100 03/15/16 07:57 03/15/16 07:57 03/15/16 08:00 03/15/16 07:57 03/15/16 07:57 Interim video-EEG long-term monitoring report: #01 03/09: Normal organization, PDR 9 Hz. During sleep, there are rare to occasional epileptiform discharges with spike, polyspike and slow wave components. These are frontocentrally predominant, sometimes biased to the right or left hemisphere but not consistently. They last 0.5 seconds at most. In addition, during sleep, there are occasional sharp waves of low to moderate voltage noted in the left temporal region involving electrodes F7, T1 (FT9) and T3. These can have an arciform morphology and occur in in brief trains lasting 0.5 seconds. No events. No seizures. #02 03/10: Same as above except some rare fragmented generalized discharges noted during waking. Two episodes of overwhelming sleepiness not associated with any EEG changes. Pt remained fully responsive and able to remember a recall phrase. #03 03/11: Same as above, no events, no seizures #04 03/12: Same as above. One event at ~0930 of feeling like she couldn't her words out. No associated EEG change. #05 03/13: Same as above. Photic induction performed and was negative. There was a single 1 second burst of discharges during the second round of photic at 6 Hz , no clinical correlate, did not happen at 6Hz with the first round. #06 03/14: Same as above. No events. No seizures EMU Exam - Exam Physical/Neurological Exam: Physical Exam: General: Well appearing in no acute distress. MSK: no extremity deformities Neurological Exam: Mental Status: Awake and alert. Oriented to person, place, and time. Fluent. Comprehension intact. Affect appropriate. Cranial Nerves: Versions were full and without nystagmus. Facial musculature and sensation were symmetric. Hearing grossly intact to voice. Palate was upgoing bilaterally. Tongue was midline. Shoulder shrug was symmetric. Motor: Bulk, tone, and strength were normal throughout. There were no abnormal movements. Sensory: Sensation to light touch intact. Coordination: Finger to nose intact. 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 She has also been having episodes of seeing flashing lights followed by various events which can include hand movements or staring as well as headache. These events occur despite the current two drug regimen of antiseizure medications, and so the home doses will be continued at this time. No typical events recorded yet. Two events of overwhelming sleep captured, which have been previously characterized as non-epileptic. One event of not being able to get words out also captured, non-epileptic. Photic induction negative. Have tried sleep deprivation, making room hot and now exercise with room hot to try and elicit events. Spoke with Dr Carter's office, dose of Saphris verified to be 10mg QAM and 20mg QPM. Plan: * Continue prison video EEG monitoring to capture typical episodes * Seizure precautions * Continue lamotrigine 100mg BID and Topamax 200mg BID * pt will use bike and room will be hot today to try and provoke events * IV lorazepam as needed for GTC or prolonged seizure >3 mins * Continue other prescribed home meds, including Saphris at 10mg QAM and 20mg QPM
[2016-03-15] MEDS: Nicotine Inhaler* 10 MG AMP INH PRN (16:50)
[2016-03-15] MEDS: CARIPRAZINE HCL 3 MG PO SCH ×2 (20:35→20:43)
[2016-03-16] MEDS: Albuterol HFA INHALER* 8 gm MDI INH SCH ×2 (06:02→12:15)
[2016-03-16 08:19] VITALS: BP 141/73
[2016-03-16] MEDS: ASENAPINE 10 MG SL SCH (09:28)
[2016-03-16] MEDS: Fluticasone NASAL SPRAY 50MCG* 16 gm SPRAY BTL BOTH NARES SCH (09:28)
[2016-03-16] MEDS: lamoTRIgine TAB(*) 100 MG PO SCH (09:29)
[2016-03-16] MEDS: Lithium Carbonate TAB* 300 MG PO SCH (09:29)
[2016-03-16] MEDS: Mometasone/Formoter 100/5 MDI INH SCH (09:30)
[2016-03-16] MEDS: tiZANidine TAB* 2 MG PO SCH ×2 (09:31→13:08)
[2016-03-16] MEDS: Topiramate TAB(*) 100 MG PO SCH (09:32)
[2016-03-16] MEDS: Nicotine Inhaler* 10 MG AMP INH PRN (09:35)
--- NOTE | 2016-03-16 09:48 | PN ---
Epilepsy Service Progress Note - Subjective No overnight events. Patient is looking forward to discharge today. Results of monitoring session discussed. - Medications Active Medications: Acetaminophen (Tylenol Tab*) 650 mg PO Q6H PRN PRN Reason: PAIN Last Admin: 03/13/16 09:13 Dose: 650 mg Acetaminophen/Hydrocodone Bitart ([place] 5-325 Tab*) 1 tab PO Q4H PRN PRN Reason: PAIN Albuterol (Ventolin Hfa Inhaler*) 2 puff INH Q6H [facility] Last Admin: 03/16/16 06:02 Dose: 2 puff Asenapine (Saphris(Nf)) 20 mg SL BEDTIME [facility] Last Admin: 03/15/16 20:34 Dose: 20 mg Asenapine (Saphris(Nf)) 10 mg SL DAILY [facility] Last Admin: 03/16/16 09:28 Dose: 10 mg Diphenhydramine HCl (Benadryl Po*) 25 mg PO Q6H PRN PRN Reason: ITCHING Docusate Sodium (Colace Cap*) 100 mg PO BID PRN PRN Reason: CONSTIPATION Last Admin: 03/13/16 12:29 Dose: 100 mg Fluticasone Propionate (Flonase Nasal [place] 50mcg*) 2 spray BOTH NARES DAILY [facility] Last Admin: 03/16/16 09:28 Dose: 2 spray Lamotrigine (Lamictal Tab(*)) 100 mg PO BID [facility] Last Admin: 03/16/16 09:29 Dose: 100 mg [place] Carbonate ([place] Carbonate Tab*) 600 mg PO BID [facility] Last Admin: 03/16/16 09:29 Dose: 600 mg Lorazepam (Ativan Inj*) 1 mg IV Q8H PRN PRN Reason: Generalized Tonic Clonic Seizu Mometasone Furoate/Formoterol Fumar (Dulera 100/5 Mdi*) 2 puff INH BID [facility] Last Admin: 03/16/16 09:30 Dose: 2 puff Nicotine (Nicotine Inhaler*) 10 mg INH Q2H PRN PRN Reason: CRAVING Last Admin: 03/16/16 09:35 Dose: 10 mg Nicotine Polacrilex (Nicotine Lozenge*) 4 mg MT Q2H PRN PRN Reason: CRAVINGS Pto Cariprazine Hcl ([Vraylar] 3 Mg) 3 mg PO BEDTIME [facility] Last Admin: 03/15/16 20:43 Dose: 3 mg Sodium Chloride (Sodium Chloride 0.65% Nasal [place]*) 1 spray BOTH NARES Q4H PRN PRN Reason: DISCOMFORT Tizanidine HCl (Zanaflex Tab*) 4 mg PO QID [facility] Last Admin: 03/16/16 09:31 Dose: 4 mg Topiramate (Topamax(*)) 200 mg PO BID [facility] Last Admin: 03/16/16 09:32 Dose: 200 mg EMU Diagnostics - Diagnostic Most Recent Vital Signs: Vital Signs: Temp Pulse Resp BP Pulse Ox 99.5 F 89 18 141/73 99 03/16/16 08:08 03/16/16 08:08 03/16/16 08:19 03/16/16 08:08 03/16/16 08:08 Interim video-EEG long-term monitoring report: #01 03/09: Normal organization, PDR 9 Hz. During sleep, there are rare to occasional epileptiform discharges with spike, polyspike and slow wave components. These are frontocentrally predominant, sometimes biased to the right or left hemisphere but not consistently. They last 0.5 seconds at most. In addition, during sleep, there are occasional sharp waves of low to moderate voltage noted in the left temporal region involving electrodes F7, T1 (FT9) and T3. These can have an arciform morphology and occur in in brief trains lasting 0.5 seconds. No events. No seizures. #02 03/10: Same as above except some rare fragmented generalized discharges noted during waking. Two episodes of overwhelming sleepiness not associated with any EEG changes. Pt remained fully responsive and able to remember a recall phrase. #03 03/11: Same as above, no events, no seizures #04 03/12: Same as above. One event at ~0930 of feeling like she couldn't her words out. No associated EEG change. #05 03/13: Same as above. Photic induction performed and was negative. There was a single 1 second burst of discharges during the second round of photic at 6 Hz , no clinical correlate, did not happen at 6Hz with the first round. #06 03/14: Same as above. No events. No seizures #07: 03/15: Same as above. No events, no seizures EMU Exam - Exam Physical/Neurological Exam: Physical Exam: General: Well appearing in no acute distress. MSK: no extremity deformities Neurological Exam: Mental Status: Awake and alert. Oriented to person, place, and time. Fluent. Comprehension intact. Affect appropriate. Cranial Nerves: Versions were full and without nystagmus. Facial musculature and sensation were symmetric. Hearing grossly intact to voice. Palate was upgoing bilaterally. Tongue was midline. Shoulder shrug was symmetric. Motor: Bulk, tone, and strength were normal throughout. There were no abnormal movements. Sensory: Sensation to light touch intact. Coordination: Finger to nose intact. 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 She has also been having episodes of seeing flashing lights followed by various events which can include hand movements or staring as well as headache. These events occur despite the current two drug regimen of antiseizure medications, and so the home doses were continued. No typical events. Two events of overwhelming sleep captured, which have been previously characterized as non-epileptic. One event of not being able to get words out also captured, non-epileptic. Photic induction negative. Have tried sleep deprivation, making room hot and now exercise with room hot to try and elicit events. Patient has also described waking with her tongue bruised on at least 2 occasions, no occult nocturnal seizures noted. Spoke with Dr Carter's office, dose of Saphris verified to be 10mg QAM and 20mg QPM. 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 Patient has a ride at 5pm. * d/c home today * Continue lamotrigine 100mg BID and Topamax 200mg BID * IV lorazepam as needed for GTC or prolonged seizure >3 mins * Continue other prescribed home meds, including Saphris at 10mg QAM and 20mg QPM * Has follow up appointment scheduled with Dr. Marley on May 03.
--- NOTE | 2016-03-16 09:49 | DS ---
EMU Discharge - Discharge Summary Discharge Summary: Admitted: 03/09/16-03/16/16 Attending: Eliane Goldberg MD Admitting Diagnosis: 1. epilepsy 2. psychogenic non-epileptic attacks Discharge Diagnosis: same Admission History (From Admission H&P): See H&P Admission Examination: See H&P Admission AED Medications: Topamax 200mg BID Lamictal 100mg BID Hospital Course: The patient was admitted to the epilepsy service for long-term video EEG monitoring. The patient had 2 events consisting of overwhelming need to sleep and one event of difficulty getting words out. Unfortunately, she did not have any of the episodes of concern, which are staring spells and episodes of missed chunks of time. She was sleep deprived, the room temperature was turned up, she underwent photic induction and exercised with a stationary hand bike in order to try and provoke events. During the above 3 events, the EEG showed no changes from the usual background rhythm. The following medication medication changes were made during the testing: none Due to the number of seizures he/she had during the admission, The patient was placed on the following temporary medication: none Discharge Examination: same as admission Destination: Home. Diet: Regular. Follow-up: with Dr Marley on May 03 Discharge Medications: Acetaminophen (Tylenol Tab*) 650 mg PO Q6H PRN PRN Reason: PAIN Last Admin: 03/13/16 09:13 Dose: 650 mg Acetaminophen/Hydrocodone Bitart ([place] 5-325 Tab*) 1 tab PO Q4H PRN PRN Reason: PAIN Albuterol (Ventolin Hfa Inhaler*) 2 puff INH Q6H [facility] Last Admin: 03/16/16 06:02 Dose: 2 puff Asenapine (Saphris(Nf)) 20 mg SL BEDTIME [facility] Last Admin: 03/15/16 20:34 Dose: 20 mg Asenapine (Saphris(Nf)) 10 mg SL DAILY [facility] Last Admin: 03/16/16 09:28 Dose: 10 mg Diphenhydramine HCl (Benadryl Po*) 25 mg PO Q6H PRN PRN Reason: ITCHING Docusate Sodium (Colace Cap*) 100 mg PO BID PRN PRN Reason: CONSTIPATION Last Admin: 03/13/16 12:29 Dose: 100 mg Fluticasone Propionate (Flonase Nasal [place] 50mcg*) 2 spray BOTH NARES DAILY [facility] Last Admin: 03/16/16 09:28 Dose: 2 spray Lamotrigine (Lamictal Tab(*)) 100 mg PO BID [facility] Last Admin: 03/16/16 09:29 Dose: 100 mg [place] Carbonate ([place] Carbonate Tab*) 600 mg PO BID [facility] Last Admin: 03/16/16 09:29 Dose: 600 mg Lorazepam (Ativan Inj*) 1 mg IV Q8H PRN PRN Reason: Generalized Tonic Clonic Seizu Mometasone Furoate/Formoterol Fumar ([place] 100/5 Mdi*) 2 puff INH BID [facility] Last Admin: 03/16/16 09:30 Dose: 2 puff Nicotine (Nicotine Inhaler*) 10 mg INH Q2H PRN PRN Reason: CRAVING Last Admin: 03/16/16 09:35 Dose: 10 mg Nicotine Polacrilex (Nicotine Lozenge*) 4 mg MT Q2H PRN PRN Reason: CRAVINGS Pto Cariprazine Hcl ([Vraylar] 3 Mg) 3 mg PO BEDTIME [facility] Last Admin: 03/15/16 20:43 Dose: 3 mg Sodium Chloride (Sodium Chloride 0.65% Nasal [place]*) 1 spray BOTH NARES Q4H PRN PRN Reason: DISCOMFORT Tizanidine HCl (Zanaflex Tab*) 4 mg PO QID [facility] Last Admin: 03/16/16 09:31 Dose: 4 mg Topiramate (Topamax(*)) 200 mg PO BID [facility] Last Admin: 03/16/16 09:32 Dose: 200 mg
== END 2016-03-16 16:10 | disposition home or self-care (01) | DRG 101 ==
LOC: EMU 11:41
PROVIDERS: ADMIT Psychiatry & Neurology Neurology; ATTEND Psychiatry & Neurology Neurology
PROC: 4A10X4Z Monitoring of Central Nervous Electrical Activity, External Approach (ICD-10-PCS; principal; 2016-03-09)
DX: G40.909 Epilepsy, unspecified, not intractable, without status epilepticus (principal); F06.8 Other specified mental disorders due to known physiological condition; F20.9 Schizophrenia, unspecified; Z88.2 Allergy status to sulfonamides; Z88.0 Allergy status to penicillin; F44.5 Conversion disorder with seizures or convulsions; Z91.410 Personal history of adult physical and sexual abuse; M17.12 Unilateral primary osteoarthritis, left knee; F32.9 Major depressive disorder, single episode, unspecified; F17.210 Nicotine dependence, cigarettes, uncomplicated
CPT/HCPCS: 95951; A9270-GY

== ENCOUNTER → 2018-05-01 02:25 | Emergency (ER) | payer MEDICARE ==
[~2018-05-01 02:25] MED LIST: Topiramate TAB(*) 100 MG PO ONE; lamoTRIgine TAB(*) 100 MG PO ONE
--- NOTE | 2018-05-01 02:50 | ED ---
Syncope/Near Syncope - HPI Summary HPI Summary: This patient is a 53 year old F brought in by ambulance to [facility] accompanied by her partner with a chief complaint of grand malseizure since 01:30. The patient reports LOC. The patient rates the pain 0/10 in severity. Symptoms aggravated by nothing. Symptoms alleviated by nothing. Patient reports biting her tongue and urinating. Patient has hx of epilepsy and psychogenic seizures. Patient notes she takes Lamictal and Topamax twice a day but has not yet taken her nighttime dose. - History Of Current Complaint Chief Complaint: EDSeizure Hx Obtained From: Patient, Family/Resolution Expert - patient's partner Onset/Duration: Sudden Onset, Resolved Timing: Seconds Context: Witnessed Aggravating Factor(s): Nothing Alleviating Factor(s): Nothing Associated Signs And Symptoms: Seizure - Allergies/Home Medications Allergies/Adverse Reactions: Allergies Allergy/AdvReac Type Severity Reaction Status Date / Time MS Apple [Apple] Allergy Swelling Verified 07/26/16 11:27 Of Face,Lips,& Throat MS Clonazepam [Clonazepam] Allergy ITCHY, Verified 07/26/16 11:27 LOSS OF BALANCE , FELT "LOOPY" MS [place] Flavor Allergy Swelling Verified 07/26/16 11:27 [[place] Flavor] Of Face,Lips,& Throat MS Peanut Oil [Peanut Oil] Allergy Swelling Verified 07/26/16 11:27 Of Face,Lips,& Throat MS Penicillins [PCN] Allergy Itching Verified 07/26/16 11:27 MS Sulfa Antibiotics Allergy Itching Verified 07/26/16 11:27 [Sulfa Antibiotics] Home Medications: Home Medications Sertraline* [Zoloft*] 50 mg PO BID 05/01/18 [History Confirmed 05/01/18] hydrOXYzine HCL TAB* [Atarax TAB 50 MG *] 50 mg PO BID PRN 05/01/18 [History Confirmed 05/01/18] traZODone TAB* [Desyrel TAB*] 150 mg PO DAILY 05/01/18 [History Confirmed ] PMH/Surg Hx/FS Hx/Imm Hx Endocrine/Hematology History: Denies: Hx Diabetes Cardiovascular History: Denies: Hx Hypertension, Hx Pacemaker/ICD Respiratory History: Denies: Hx Asthma - denies but is on meds for asthma History: Denies: Hx Renal Disease Musculoskeletal History: Reports: Hx Arthritis - osteoarthritis of left knee and ankle Sensory History: Reports: Hx Contacts or Glasses Denies: Hx Hearing Aid Opthamlomology History: Reports: Hx Contacts or Glasses Neurological History: Reports: Hx Seizures - epilepsy and psychogenic seizures Denies: Hx Developmental Delay Psychiatric History: Reports: Hx Depression - not currently, Hx Schizophrenia, Hx Suicide Attempt Denies: Hx Eating Disorder, Hx Panic Disorder, Hx of Violent Episodes Against Others - Surgical History Surgery Procedure, Year, and Place: Rotator cuff surgery on left shoulder 2010. Left ankle surgery for arthritis 2010 Hx Anesthesia Reactions: No Infectious Disease History: No Infectious Disease History: Denies: Traveled Outside the [place] in Last 30 Days - Family History Known Family History: Negative: Blood Disorder - Social History Alcohol Use: None Substance Use Type: Reports: None Smoking Status (MU): Current Every Day Smoker Type: Cigarettes Amount Used/How Often: 1 pack q4 days Review of Systems Negative: Fever ENT: Other - bit her tongue Negative: Cough Negative: Vomiting Positive: Syncope - grand mal seizure All Other Systems Reviewed And Are Negative: Yes Physical Exam - Summary Physical Exam Summary: VITAL SIGNS: Reviewed. GENERAL: Patient is a well-developed and nourished FEMALE who is lying comfortable in the stretcher. Patient is not in any acute respiratory distress. HEAD AND FACE: No signs of trauma. No ecchymosis, hematomas or skull depressions. No sinus tenderness. EYES: PERRLA, EOMI x 2, No injected conjunctiva, no nystagmus. EARS: Hearing grossly intact. Ear canals and tympanic membranes are within normal limits. MOUTH: Oropharynx within normal limits. Tongue bitten on left side NECK: Supple, trachea is midline, no adenopathy, no JVD, no carotid bruit, no c- spine tenderness, neck with full ROM. CHEST: Symmetric, no tenderness at palpation LUNGS: Clear to auscultation bilaterally. No wheezing or crackles. CVS: Regular rate and rhythm, S1 and S2 present, no murmurs or gallops appreciated. ABDOMEN: Soft, non-tender. No signs of distention. No rebound no guarding, and no masses palpated. Bowel sounds are normal. EXTREMITIES: FROM in all major joints, no edema, no cyanosis or clubbing. NEURO: Alert and oriented x 3. No acute neurological deficits. Speech is normal and follows commands. SKIN: Dry and warm Triage Information Reviewed: Yes Vital Signs On Initial Exam: Initial Vitals Temp Pulse Resp BP Pulse Ox 97.9 F 112 16 157/86 95 05/01/18 02:32 05/01/18 02:32 05/01/18 02:32 05/01/18 02:32 05/01/18 02:32 Vital Signs Reviewed: Yes Diagnostics - Vital Signs Vital Signs Temp Pulse Resp BP Pulse Ox 05/01/18 02:32 97.9 F 112 16 157/86 95 - Laboratory Result Diagrams: 05/01/18 02:56 05/01/18 02:56 Lab Statement: Any lab studies that have been ordered have been reviewed, and results considered in the medical decision making process. - CT CT Brain CT Interpretation Completed By: Radiologist Summary of CT Findings: IMPRESSION: 1. Focal depression of the right lamina papyracea consistent with old injury. 2. Otherwise negative noncontrast head CT. Dr. Bolton has reviewed this report. Re-Evaluation - Re-Evaluation 1st re-eval Re-Evaluation Time: 03:30 Change: Unchanged Comment: Discussed patient's Topamax prescription. Patient stated she has been taking 100 when her prescription is written for 200. Course/Dx Course Of Treatment: This patient is a 53 year old F brought in by ambulance to [facility] accompanied by her partner with a chief complaint of grand malseizure since 01:30. The patient reports LOC. Patient reports biting her tongue and urinating. Patient has hx of epilepsy and psychogenic seizures. Patient notes she takes Lamictal and Topamax twice a day but has not yet taken her nighttime dose. Physical exam reveals the patient bit her tongue on the left side. Upon re -evaluation, patient stated she has been taking 100 Topamax instead of the prescribed 200. CT Brain reveals, per radiologist, 1. Focal depression of the right lamina papyracea consistent with old injury. 2. Otherwise negative noncontrast head CT. ED physician has reviewed this radiology report. Bloodwork and UA obtained. In the ED course the patient was given Lamictal and Topamax. Dx recurrent seizure. Patient will be discharged home with follow up from neurologist. She is advised to take 200 Topamax twice a day. The patient is agreeable with this plan. - Diagnoses Provider Diagnoses: Recurrent seizures Discharge - Sign-Out/Discharge Documenting (check all that apply): Patient Departure - discharge home Patient Received Moderate/Deep Sedation with Procedure: No - Discharge Plan Condition: Stable Disposition: HOME Patient Education Materials: Epilepsy (ED), Recurrent Seizures in Adults (ED) Referrals: Sg Saldana MD [Primary Care Provider] - 1 Day Additional Instructions: Please take 200 Topamax twice a day. Follow up with your neurologist in 1-2 days. Return to the emergency department with any new or worsening symptoms. - Attestation Statements Document Initiated by Scribe: Yes Documenting Scribe: Idalia Taylor Provider For Whom Scribe is Documenting (Include Credential): Pavithra Bolton MD Scribe Attestation: Idalia Cunningham, scribed for Pavithra Bolton MD on 05/01/18 at 0432. Status of Scribe Document: Ready
[2018-05-01 03:09] LABS: ABS Basophils 0.1 10^3/ul (0-0.2); ABS Eosinophils 0.2 10^3/ul (0-0.6); ABS Lymphocytes 2.8 10^3/ul (1.0-4.8); ABS Monocytes 0.7 10^3/ul (0-0.8); ABS Neutrophils 12.2 10^3/ul (1.5-7.7); ABS Nucleated RBC 0 10^3/ul; Eosinophil % 1.2 %; Hematocrit 42 % (35-47); Hemoglobin 13.4 g/dl (12.0-16.0); Lymphocyte % 17.7 %; Mean Corpuscular HGB Conc 32 g/dl (31-36); Mean Corpuscular Hemoglobin 28 pg (27-31); Mean Corpuscular Volume 87 fL (80-97); Nucleated Red Blood Cells % 0.1; Platelet Count 216 10^3/ul (150-450); Red Blood Count 4.78 10^6/ul (4.00-5.40); Red Cell Distribution Width 15 % (10.5-15)
[2018-05-01 03:26] LABS: Albumin/Globulin Ratio 1.3 (1-3); Calcium 9.1 mg/dL (8.6-10.3); EGFR African American 63.3 (>60); EGFR Non-African American 52.3 (>60); Magnesium 2.1 mg/dL (1.9-2.7); Potassium 3.5 mmol/L (3.5-5.0); Total Bilirubin 0.2 mg/dL (0.2-1.0)
[2018-05-01 03:31] LABS: Lithium 0.53 mmol/L (0.6-1.2)
[2018-05-01 04:29] LABS: Urine Appearance Clear; Urine Bacteria 1+ (Absent); Urine Bilirubin Negative (Negative); Urine Blood 1+ (Negative); Urine Color Straw; Urine Glucose Negative (Negative); Urine Ketones Negative (Negative); Urine Nitrite Negative (Negative); Urine Protein Negative (Negative); Urine Red Blood Cell Trace(0-2/hpf) (Absent); Urine Specific Gravity 1.008 (1.010-1.030); Urine Urobilinogen Negative (Negative); Urine White Blood Cell Trace(0-5/hpf) (Absent)
[2018-05-01 04:49] VITALS: BP 152/89
== END | disposition home or self-care (01) ==
LOC: ED 02:25
DX: G40.909 Epilepsy, unspecified, not intractable, without status epilepticus (principal); R55 Syncope and collapse; F17.210 Nicotine dependence, cigarettes, uncomplicated; Z88.0 Allergy status to penicillin; Z88.2 Allergy status to sulfonamides
CPT/HCPCS: 36415; 70450; 80053; 80178; 81003; 81015; 83735; 85025; 87086; 99282; A9270-GY

== ENCOUNTER 2022-07-28 20:34 | Observation (INO) ==
[2022-07-29 01:49] LABS: ABS Basophils 0.1 10^3/uL (0.0-0.1); ABS Lymphocytes 1.9 10^3/uL (1.0-4.8); ABS Monocytes 0.9 10^3/uL (0.0-0.9); ABS Nucleated RBC 0.01 10^3/ul; Eosinophil % 0.1 %; Hematocrit 38.9 % (35-45); Hemoglobin 12.9 g/dL (11.5-14.3); Lymphocyte % 13.1 %; Mean Corpuscular Hemoglobin 28.5 pg (27-33); Mean Corpuscular Hgb Conc 33.3 g/dL (31-36); Mean Corpuscular Volume 85.6 fL (80-97); Mean Platelet Volume 8.8 fL (7.5-11.2); Platelet Count 214 10^3/uL (150-450); Red Blood Count 4.54 10^6/uL (3.63-4.92); Red Cell Distribution Width 16.7 % (12-17); White Blood Count 14.9 10^3/uL (3.8-11.8)
[2022-07-29 01:55] LABS: INR 1.07 (0.88-1.18)
[2022-07-29 02:05] LABS: Albumin 4.2 g/dL (3.2-5.2); Albumin/Globulin Ratio 1.4 (1-3); Calcium 9.5 mg/dL (8.6-10.3); Creatinine, Serum 0.97 mg/dL (0.51-0.95); Globulin 3.1 g/dL (2-4); Potassium 3.6 mmol/L (3.5-5.0); Total Bilirubin 0.3 mg/dL (0.2-1.0); Total Protein 7.3 g/dL (6.4-8.9); eGFR CKD-EPI 67.7 (>60)
[2022-07-29] MEDS ORDERED: Iohexol 350 (CONTRAST) 500 ML MDV IV ONE (03:33)
[2022-07-29 08:16] LABS: Urine Appearance Cloudy; Urine Bilirubin Negative (Negative); Urine Blood Negative (Negative); Urine Color Yellow; Urine Glucose Negative (Negative); Urine Ketones Negative (Negative); Urine Nitrite Negative (Negative); Urine Protein 1+(30 mg/dL) (Negative); Urine Specific Gravity 1.025 (1.002-1.030); Urine Urobilinogen Negative (Negative)
[2022-07-29 08:27] LABS: Urine Bacteria 1+ (Absent); Urine Red Blood Cell 3+(>10/hpf) (Absent); Urine Squamous Epithelial Cell Present (Absent); Urine White Blood Cell 1+(6-10/hpf) (Absent)
[2022-07-29 17:03] LABS: TSH Ultra Thyroid Stim Horm 1.49 mcIU/mL (0.34-5.60)
[2022-07-29 17:19] LABS: Urine Benzodiazepine Screen None Detected (None Detect); Urine Cannabinoids Screen Presumptive Positive (None Detect); Urine Opiates Screen None Detected (None Detect)
[2022-07-29] MEDS: Enoxaparin 40 MG/0.4 ML SYR SUBCUT SCH (20:57)
[2022-07-29] MEDS: Albuterol HFA INHALER 8 gm MDI INH PRN (21:36)
[2022-07-30 06:04] LABS: ABS Lymphocytes 2.3 10^3/uL (1.0-4.8); ABS Monocytes 0.5 10^3/uL (0.0-0.9); ABS Neutrophils 6.4 10^3/uL (1.5-7.6); ABS Nucleated RBC 0.01 10^3/ul; Eosinophil % 0.3 %; Hemoglobin 12.3 g/dL (11.5-14.3); Lymphocyte % 24.8 %; Mean Corpuscular Hemoglobin 28.3 pg (27-33); Mean Corpuscular Hgb Conc 33.2 g/dL (31-36); Mean Corpuscular Volume 85.3 fL (80-97); Nucleated Red Blood Cells % 0.1 /100 WBC (0.0-0.4); Platelet Count 216 10^3/uL (150-450); Red Blood Count 4.34 10^6/uL (3.63-4.92); Red Cell Distribution Width 17.2 % (12-17); White Blood Count 9.3 10^3/uL (3.8-11.8)
[2022-07-30 06:14] LABS: Calcium 9.1 mg/dL (8.6-10.3); Creatinine, Serum 1.14 mg/dL (0.51-0.95); Potassium 3.7 mmol/L (3.5-5.0); eGFR CKD-EPI 55.8 (>60)
[2022-07-30] MEDS: CMC:FLUTICAS/UMECLI/VILANT 200-62.5-25 MDI (NF) INH SCH (07:56)
[2022-07-30] MEDS: Albuterol HFA INHALER 8 gm MDI INH PRN ×2 (09:11→20:01)
[2022-07-30] MEDS ORDERED: Lactated Ringers 1000 ml BAG 1,000 ML IV ONE (13:06)
[2022-07-30] MEDS: Enoxaparin 40 MG/0.4 ML SYR SUBCUT SCH (19:58)
[2022-07-31] MEDS: Albuterol HFA INHALER 8 gm MDI INH PRN (02:48)
[2022-07-31 06:47] LABS: Calcium 9.3 mg/dL (8.6-10.3); Magnesium 2.2 mg/dL (1.9-2.7); Potassium 3.9 mmol/L (3.5-5.0); eGFR CKD-EPI 65.3 (>60)
[2022-07-31] MEDS: CMC:FLUTICAS/UMECLI/VILANT 200-62.5-25 MDI (NF) INH SCH (08:14)
[2022-07-31] MEDS ORDERED: Cyanocobalamin INJ 1,000 MCG/ML VIAL 1 ML VIAL IM ONE (10:15)
[2022-07-31 14:49] VITALS: BP 144/83
[2022-07-31 16:40] LABS: Lamotrigine 31.9 mcg/mL (3.0-15.0)
== END 2022-07-31 15:13 | disposition swing bed (61) ==
LOC: ED 20:34 → EDHOLD 20:34 → SUATTDRO 07-29 09:21 → MED 07-29 13:04
PROVIDERS: ADMIT Internal Medicine; ATTEND Internal Medicine

== ENCOUNTER 2022-07-31 15:27 | Inpatient (IN) ==
[2022-07-31] MEDS ORDERED: Albuterol HFA INHALER 8 gm MDI INH PRN (15:48)
[2022-07-31] MEDS ORDERED: Nystatin/Triamcinolone CR (NF) 1 APPLIC TUBE TOPICAL SCH (16:00)
[2022-07-31] MEDS: Triamcinolone 0.025% OINT 15 GM TUBE TOPICAL SCH ×2 (18:23→20:55)
[2022-07-31] MEDS: Enoxaparin 40 MG/0.4 ML SYR SUBCUT SCH (20:54)
[2022-08-01] MEDS: CMCS: FLUTICAS/UMECLI/VILANT 200-62.5-25 MDI (NF) INH SCH (07:55)
[2022-08-01] MEDS: Triamcinolone 0.025% OINT 15 GM TUBE TOPICAL SCH ×4 (09:24→21:06)
[2022-08-01 16:55] VITALS: BP 136/79
[2022-08-01] MEDS: Enoxaparin 40 MG/0.4 ML SYR SUBCUT SCH (21:06)
[2022-08-02] MEDS: CMCS: FLUTICAS/UMECLI/VILANT 200-62.5-25 MDI (NF) INH SCH (07:41)
[2022-08-02] MEDS: Triamcinolone 0.025% OINT 15 GM TUBE TOPICAL SCH (08:34)
[2022-08-02] MEDS ORDERED: Triamcinolone 0.025% OINT 15 GM TUBE TOPICAL PRN (09:25)
== END 2022-08-02 15:00 | disposition home or self-care (01) | DRG 72 ==
LOC: MED 15:41
PROVIDERS: ADMIT Internal Medicine; ATTEND Internal Medicine

== ENCOUNTER 2022-08-15 13:02 | Observation (INO) ==
[2022-08-15] MEDS ORDERED: NS 0.9% 1000 ml BAG 1,000 ML IV ONE (14:03)
[2022-08-15] MEDS ORDERED: Acetaminophen IV 1 GM/100ML 1,000 MG/100 ML BAG IV ONE (14:03)
[2022-08-15 15:28] LABS: ABS Basophils 0.1 10^3/uL (0.0-0.1); ABS Lymphocytes 2.2 10^3/uL (1.0-4.8); ABS Monocytes 0.3 10^3/uL (0.0-0.9); ABS Nucleated RBC 0.01 10^3/ul; Eosinophil % 0.4 %; Hemoglobin 11.9 g/dL (11.5-14.3); Lymphocyte % 20.9 %; Mean Corpuscular Hemoglobin 28.7 pg (27-33); Mean Platelet Volume 9.3 fL (7.5-11.2); Nucleated Red Blood Cells % 0.1 /100 WBC (0.0-0.4); Platelet Count 220 10^3/uL (150-450); Red Blood Count 4.14 10^6/uL (3.63-4.92); Red Cell Distribution Width 16.8 % (12-17); White Blood Count 10.6 10^3/uL (3.8-11.8)
[2022-08-15 16:19] LABS: Albumin 3.7 g/dL (3.2-5.2); Calcium 9.3 mg/dL (8.6-10.3); Potassium 3.6 mmol/L (3.5-5.0); Total Bilirubin 0.2 mg/dL (0.2-1.0)
[2022-08-15 16:25] LABS: Albumin/Globulin Ratio 1.2 (1-3); Creatinine, Serum 0.95 mg/dL (0.51-0.95); Globulin 3.2 g/dL (2-4); Total Protein 6.9 g/dL (6.4-8.9); eGFR CKD-EPI 69.4 (>60)
[2022-08-15 16:29] LABS: HCG Pregnancy 3.33 mIU/mL
[2022-08-15 16:33] LABS: Urine Appearance Cloudy; Urine Bilirubin Negative (Negative); Urine Blood Negative (Negative); Urine Color Straw; Urine Glucose Negative (Negative); Urine Ketones Negative (Negative); Urine Nitrite Negative (Negative); Urine Protein Negative (Negative); Urine Specific Gravity 1.005 (1.002-1.030); Urine Urobilinogen Negative (Negative)
[2022-08-15] MEDS ORDERED: Albuterol HFA INHALER 8 gm MDI INH PRN (21:22)
[2022-08-15] MEDS: Enoxaparin 40 MG/0.4 ML SYR SUBCUT SCH (22:41)
[2022-08-16 06:02] LABS: ABS Basophils 0.1 10^3/uL (0.0-0.1); ABS Eosinophils 0.1 10^3/uL (0.0-0.5); ABS Lymphocytes 2.3 10^3/uL (1.0-4.8); ABS Monocytes 0.4 10^3/uL (0.0-0.9); ABS Neutrophils 6.3 10^3/uL (1.5-7.6); Eosinophil % 1.4 %; Hematocrit 35.2 % (35-45); Hemoglobin 11.7 g/dL (11.5-14.3); Lymphocyte % 24.7 %; Mean Corpuscular Hemoglobin 28.7 pg (27-33); Mean Corpuscular Hgb Conc 33.2 g/dL (31-36); Mean Corpuscular Volume 86.5 fL (80-97); Mean Platelet Volume 8.8 fL (7.5-11.2); Platelet Count 227 10^3/uL (150-450); Red Blood Count 4.07 10^6/uL (3.63-4.92); Red Cell Distribution Width 16.8 % (12-17); White Blood Count 9.2 10^3/uL (3.8-11.8)
[2022-08-16 06:17] LABS: Calcium 9.2 mg/dL (8.6-10.3); Creatinine, Serum 1.03 mg/dL (0.51-0.95); Magnesium 2.2 mg/dL (1.9-2.7)
[2022-08-16] MEDS: CMCS: FLUTICAS/UMECLI/VILANT 200-62.5-25 MDI (NF) INH SCH (08:46)
[2022-08-16] MEDS: Enoxaparin 40 MG/0.4 ML SYR SUBCUT SCH (20:59)
[2022-08-16] MEDS: Fluticasone NASAL SPRAY 50MCG 16 gm SPRAY BTL BOTH NARES PRN (22:44)
[2022-08-17] MEDS: CMCS: FLUTICAS/UMECLI/VILANT 200-62.5-25 MDI (NF) INH SCH (07:55)
[2022-08-17 09:36] VITALS: BP 128/72
[2022-08-17] MEDS: Fluticasone NASAL SPRAY 50MCG 16 gm SPRAY BTL BOTH NARES PRN (09:45)
== END 2022-08-17 12:40 | disposition home or self-care (01) ==
LOC: EDHOLD 13:02 → ED 13:02 → EDHOLD 08-16 07:53 → MED 08-16 15:54
PROVIDERS: ADMIT Internal Medicine; ATTEND Internal Medicine

== ENCOUNTER 2023-01-28 14:20 | Observation (INO) ==
[2023-01-28 15:09] LABS: ABS Eosinophils 0.1 10^3/uL (0.0-0.5); ABS Lymphocytes 1.7 10^3/uL (1.0-4.8); ABS Monocytes 0.6 10^3/uL (0.0-0.9); ABS Neutrophils 7.4 10^3/uL (1.5-7.6); ABS Nucleated RBC 0.01 10^3/ul; Eosinophil % 0.5 %; Hematocrit 39.6 % (35-45); Hemoglobin 13.2 g/dL (11.5-14.3); Lymphocyte % 17.8 %; Mean Corpuscular Hgb Conc 33.3 g/dL (31-36); Mean Corpuscular Volume 86.9 fL (80-97); Mean Platelet Volume 8.7 fL (7.5-11.2); Nucleated Red Blood Cells % 0.1 %/100WBC (0.0-0.8); Platelet Count 176 10^3/uL (150-450); Red Blood Count 4.56 10^6/uL (3.63-4.92); Red Cell Distribution Width 16.8 % (12-17); White Blood Count 9.8 10^3/uL (3.8-11.8)
[2023-01-28 15:42] LABS: ALT 35 U/L (7-52); AST 26 U/L (13-39); Albumin 4.1 g/dL (3.2-5.2); Albumin/Globulin Ratio 1.3 (1-3); Alkaline Phosphatase 91 U/L (35-149); Anion Gap 10 mmol/L (2-16); Blood Urea Nitrogen 9 mg/dL (6-24); CO2 Carbon Dioxide 25 mmol/L (22-32); Calcium 9.7 mg/dL (8.6-10.3); Chloride 108 mmol/L (101-111); Creatinine, Serum 0.93 mg/dL (0.51-0.95); Globulin 3.1 g/dL (2-4); Glucose 86 mg/dL (70-100); Magnesium 2.2 mg/dL (1.9-2.7); Potassium 4.3 mmol/L (3.5-5.0); Sodium 143 mmol/L (135-145); Total Bilirubin 0.4 mg/dL (0.2-1.0); Total Protein 7.2 g/dL (6.4-8.9); eGFR CKD-EPI 71.2 (>60)
[2023-01-28] MEDS ORDERED: Lorazepam PYXIS KEY PRN (15:45)
[2023-01-28] MEDS ORDERED: LORazepam 2 mg VIAL 1 ml IV PUSH ONE (15:45)
[2023-01-28 15:59] LABS: Vitamin B12 > 1450 pg/mL (180-914)
[2023-01-28] MEDS ORDERED: Iohexol 350 (CONTRAST) 500 ML MDV IV ONE (16:28)
[2023-01-28 16:39] LABS: Urine Appearance Turbid; Urine Bilirubin Negative (Negative); Urine Blood Negative (Negative); Urine Color Yellow; Urine Glucose Negative (Negative); Urine Ketones Trace (Negative); Urine Nitrite Negative (Negative); Urine Protein Negative (Negative); Urine Specific Gravity 1.014 (1.002-1.030); Urine Urobilinogen Negative (Negative)
[2023-01-28] MEDS ORDERED: Lactated Ringers 1000 ml BAG 1,000 ML IV ONE (16:49)
[2023-01-28] MEDS ORDERED: diazePAM INJ CARPUJECT 5 MG/ML SYRINGE IV ONE (16:51)
[2023-01-29 07:02] LABS: ABS Eosinophils 0.1 10^3/uL (0.0-0.5); ABS Lymphocytes 2.6 10^3/uL (1.0-4.8); ABS Monocytes 0.7 10^3/uL (0.0-0.9); ABS Neutrophils 6.4 10^3/uL (1.5-7.6); ABS Nucleated RBC 0.04 10^3/ul; Eosinophil % 1.5 %; Hematocrit 39.4 % (35-45); Hemoglobin 13.2 g/dL (11.5-14.3); Lymphocyte % 26.1 %; Mean Corpuscular Hemoglobin 29.3 pg (27-33); Mean Corpuscular Hgb Conc 33.5 g/dL (31-36); Mean Corpuscular Volume 87.7 fL (80-97); Mean Platelet Volume 8.5 fL (7.5-11.2); Nucleated Red Blood Cells % 0.4 %/100WBC (0.0-0.8); Platelet Count 160 10^3/uL (150-450); Red Blood Count 4.49 10^6/uL (3.63-4.92); Red Cell Distribution Width 17.1 % (12-17); White Blood Count 9.9 10^3/uL (3.8-11.8)
[2023-01-29 07:46] LABS: Calcium 9.4 mg/dL (8.6-10.3); Creatinine, Serum 0.92 mg/dL (0.51-0.95); HDL Cholesterol 58.1 mg/dL; Magnesium 1.9 mg/dL (1.9-2.7); Potassium 3.9 mmol/L (3.5-5.0); eGFR CKD-EPI 72.2 (>60)
[2023-01-29] MEDS ORDERED: CMCS: FLUTICAS/UMECLI/VILANT 200-62.5-25 MDI (NF) INH SCH (09:00)
[2023-01-29 17:41] VITALS: BP 149/73
[2023-01-30] MEDS ORDERED: Aspirin EC 81 mg TAB.EC (enteric coated) PO SCH (09:00)
[2023-02-01 15:55] LABS: IgG Immunoblot Negative (Negative); IgM Immunoblot Negative (Negative)
== END 2023-01-29 17:40 | disposition home or self-care (01) ==
LOC: ED 14:20 → INTOOBSV 19:14 → EDHOLD 19:14 → MEDTELE 01-29 12:22 → EDHOLD 01-29 13:10
PROVIDERS: ADMIT Internal Medicine; ATTEND Internal Medicine

== ENCOUNTER 2023-03-01 06:25 | Observation (INO) ==
[2023-03-01 09:41] LABS: ABS Lymphocytes 1.3 10^3/uL (1.0-4.8); ABS Monocytes 0.6 10^3/uL (0.0-0.9); ABS Neutrophils 9.9 10^3/uL (1.5-7.6); ABS Nucleated RBC 0.02 10^3/ul; Eosinophil % 0.1 %; Hematocrit 35.7 % (35-45); Hemoglobin 11.8 g/dL (11.5-14.3); Lymphocyte % 10.8 %; Mean Corpuscular Hemoglobin 28.5 pg (27-33); Mean Corpuscular Hgb Conc 32.9 g/dL (31-36); Mean Corpuscular Volume 86.7 fL (80-97); Mean Platelet Volume 8.8 fL (7.5-11.2); Nucleated Red Blood Cells % 0.1 %/100WBC (0.0-0.8); Platelet Count 228 10^3/uL (150-450); Red Blood Count 4.12 10^6/uL (3.63-4.92); White Blood Count 11.8 10^3/uL (3.8-11.8)
[2023-03-01 09:59] LABS: Albumin 3.9 g/dL (3.2-5.2); Albumin/Globulin Ratio 1.3 (1-3); C Reactive Protein 26.14 mg/L (<8.01); Creatinine, Serum 0.91 mg/dL (0.51-0.95); Globulin 3.1 g/dL (2-4); Potassium 3.7 mmol/L (3.5-5.0); Total Bilirubin 0.3 mg/dL (0.2-1.0); eGFR CKD-EPI 73.1 (>60)
[2023-03-01] MEDS ORDERED: Morphine 4 MG/ML VIAL (1 ml) ONE (18:55)
[2023-03-01] MEDS ORDERED: Morphine 4 MG/ML VIAL (1 ml) IM ONE (20:00)
[2023-03-01] MEDS ORDERED: Varenicline 1 mg TAB (NF) PO ONE (21:16)
[2023-03-02] MEDS ORDERED: Acetaminophen IV 1 GM/100ML 1,000 MG/100 ML BAG IV SCH (01:00)
[2023-03-02] MEDS: Enoxaparin 40 MG/0.4 ML SYR SUBCUT SCH (05:26)
[2023-03-02] MEDS: CMCS:FLUTICAS/UMECLI/VILANT 200-62.5-25 MDI (NF) INH SCH (07:46)
[2023-03-02] MEDS: Aspirin EC 81 mg TAB.EC (enteric coated) PO SCH (09:00)
[2023-03-02 17:20] LABS: Urine Appearance Cloudy; Urine Bilirubin Negative (Negative); Urine Blood Negative (Negative); Urine Color Yellow; Urine Glucose Negative (Negative); Urine Ketones Trace (Negative); Urine Nitrite Negative (Negative); Urine Protein Negative (Negative); Urine Specific Gravity 1.024 (1.002-1.030); Urine Urobilinogen Negative (Negative)
[2023-03-03] MEDS: Enoxaparin 40 MG/0.4 ML SYR SUBCUT SCH (05:25)
[2023-03-03] MEDS ORDERED: Potassium Chlor 20 meq TAB.ER PO ONE (07:21)
[2023-03-03] MEDS: CMCS:FLUTICAS/UMECLI/VILANT 200-62.5-25 MDI (NF) INH SCH (07:45)
[2023-03-03 08:31] LABS: Magnesium 2.2 mg/dL (1.9-2.7)
[2023-03-03] MEDS: Aspirin EC 81 mg TAB.EC (enteric coated) PO SCH (09:53)
[2023-03-04] MEDS: Enoxaparin 40 MG/0.4 ML SYR SUBCUT SCH (05:38)
[2023-03-04] MEDS: CMCS:FLUTICAS/UMECLI/VILANT 200-62.5-25 MDI (NF) INH SCH (07:38)
[2023-03-04] MEDS: Aspirin EC 81 mg TAB.EC (enteric coated) PO SCH (08:44)
[2023-03-05] MEDS: Enoxaparin 40 MG/0.4 ML SYR SUBCUT SCH (05:42)
[2023-03-05] MEDS: CMCS:FLUTICAS/UMECLI/VILANT 200-62.5-25 MDI (NF) INH SCH (07:49)
[2023-03-05] MEDS: Aspirin EC 81 mg TAB.EC (enteric coated) PO SCH (08:47)
[2023-03-06] MEDS: Enoxaparin 40 MG/0.4 ML SYR SUBCUT SCH (05:37)
[2023-03-06] MEDS: CMCS:FLUTICAS/UMECLI/VILANT 200-62.5-25 MDI (NF) INH SCH (08:42)
[2023-03-06] MEDS: Aspirin EC 81 mg TAB.EC (enteric coated) PO SCH (09:15)
[2023-03-07] MEDS: Enoxaparin 40 MG/0.4 ML SYR SUBCUT SCH (05:48)
[2023-03-07] MEDS: Aspirin EC 81 mg TAB.EC (enteric coated) PO SCH (09:39)
[2023-03-07] MEDS: CMCS:FLUTICAS/UMECLI/VILANT 200-62.5-25 MDI (NF) INH SCH (09:59)
[2023-03-07 11:26] VITALS: BP 112/72
== END 2023-03-07 13:05 ==
LOC: ED 06:25 → EDHOLD 06:25 → ED 11:36 → SUATTDRO 21:00 → MED 21:57
PROVIDERS: ADMIT Internal Medicine; ATTEND Internal Medicine

== ENCOUNTER 2023-05-07 12:59 | Observation (INO) ==
[~2023-05-07 12:59] MED LIST changes: +Buffered Lidocaine 1% SYRIN 1 ml INTRADERM ONE; +Famotidine IV 10 MG/ML 2 ml VIAL (20 mg) IV ONE; +Lactated Ringers 1000 ml BAG 1,000 ML IV SCH; +Levalbuterol 0.63MG/3ML NEB UNIT OF USE INH ONE; +Naloxone 0.4 mg VIAL 0.4 mg/ml 1 ml VIAL IV PRN; -Topiramate TAB(*) 100 MG PO ONE; -lamoTRIgine TAB(*) 100 MG PO ONE
[2023-05-07 14:04] LABS: Rapid COVID-19 Molecular Undetected (Undetected)
[2023-05-07] MEDS ORDERED: Tranexamic Acid 1 GM/100ML BAG 2,000 MG/200 ML BAG IV ONE (14:26)
[2023-05-07] MEDS ORDERED: Propofol 10 MG/ML 20 ML BTL ONE (16:05)
[2023-05-07] MEDS ORDERED: Ondansetron 4 mg VIAL 2 MG/ML 2 ml VIAL ONE (16:05)
[2023-05-07] MEDS ORDERED: Rocuronium 50 mg VIAL 10 mg/ml 5 ml VIAL (50 mg) ONE (16:05)
[2023-05-07] MEDS ORDERED: fentaNYL 250 mcg/5 ml 50 MCG/ML 5 ml VIAL (250 MCG) ONE (16:05)
[2023-05-07] MEDS ORDERED: Lidocaine 2% PF 5 ML VIAL ONE ×2 (16:05→17:25)
[2023-05-07] MEDS ORDERED: Dexamethasone IV 4 MG/ML VIAL 1 ml VIAL ONE (16:05)
[2023-05-07] MEDS ORDERED: Dexmedetomidine 200 mcg/2 ml 2 ml VIAL (200 mcg) ONE (16:05)
[2023-05-07] MEDS ORDERED: ROPIVACAINE 5 MG/ML 30 ML BTL (0.5%) ONE ×2 (16:07→16:18)
[2023-05-07] MEDS ORDERED: Acetaminophen IV 1 GM/100ML 1,000 MG/100 ML BAG IV ONE (17:35)
[2023-05-07] MEDS ORDERED: Ondansetron 4 mg VIAL 2 MG/ML 2 ml VIAL IV PRN (20:03)
[2023-05-07] MEDS ORDERED: Morphine 2 MG/ML SYRINGE IV PRN (20:03)
[2023-05-07] MEDS ORDERED: Ondansetron ODT 4 mg TAB 4 MG TAB PO PRN (20:03)
[2023-05-07] MEDS ORDERED: Magnesium Hydroxide LIQ 30 ML UDC PO PRN (20:03)
[2023-05-07] MEDS ORDERED: Lactulose 30 ml UDC PO PRN (20:03)
[2023-05-07] MEDS ORDERED: fentaNYL 100 mcg/2 ml 50 MCG/ML VIAL ONE (20:17)
[2023-05-07] MEDS: fentaNYL 100 mcg/2 ml 50 MCG/ML VIAL IV PRN (20:23)
[2023-05-07] MEDS ORDERED: Vancomycin per Pharmacy 1 EA NOTE FOLLOW UP SCH (21:00)
[2023-05-07] MEDS: Magnesium Hydroxide LIQ 30 ML UDC PO SCH (22:50)
[2023-05-07] MEDS: Lactated Ringers 1000 ml BAG 1,000 ML IV SCH ×2 (23:16→23:20)
[2023-05-07] MEDS: Vancomycin 2,000 MG in NS 0.9% 500 ml BAG 500 ML IVPB ONE (23:16)
[2023-05-07] MEDS: Buffered Lidocaine 1% SYRIN 1 ml INTRADERM ONE (23:16)
[2023-05-07] MEDS ORDERED: Albuterol HFA INHALER 8 gm MDI INH PRN (23:19)
[2023-05-07] MEDS: Vancomycin 1,500 MG in NS 0.9% 250 ml 250 ML IVPB ONE (23:20)
[2023-05-08 05:22] LABS: Hemoglobin 11.4 g/dL (11.5-14.3); Mean Platelet Volume 9.2 fL (7.5-11.2); Platelet Count 192 10^3/uL (150-450)
[2023-05-08 05:41] LABS: Calcium 8.5 mg/dL (8.6-10.3); Creatinine, Serum 0.64 mg/dL (0.51-0.95); Potassium 4.2 mmol/L (3.5-5.0); eGFR CKD-EPI 101.7 (>60)
[2023-05-08] MEDS: Vancomycin 1000 MG in NS 0.9% 250 ML IVPB SCH (08:51)
[2023-05-08] MEDS: Aspirin EC 81 mg TAB.EC (enteric coated) PO SCH (08:51)
[2023-05-08] MEDS: Vitamin THERAPEUTIC TAB PO SCH (08:52)
[2023-05-08] MEDS: CMCS:FLUTICAS/UMECLI/VILANT 200-62.5-25 MDI (NF) INH SCH (10:29)
[2023-05-08] MEDS: COVID VAC 23-24(12+)(Moderna) SYR 0.5 ML IM ONE (13:00)
[2023-05-08 14:22] VITALS: BP 119/76
[2023-05-09] MEDS ORDERED: Vancomycin Trough Check NOTE FOLLOW UP ONE (07:30)
== END 2023-05-08 14:52 | disposition home or self-care (01) ==
LOC: SSU 12:59 → OR 12:59
PROVIDERS: ADMIT Orthopaedic Surgery Adult Reconstructive Orthopaedic Surgery; ATTEND Orthopaedic Surgery Adult Reconstructive Orthopaedic Surgery

== ENCOUNTER 2023-08-23 12:34 | Observation (INO) ==
[2023-08-23 12:50] LABS: ABS Lymphocytes 0.7 10^3/uL (1.0-4.8); ABS Monocytes 0.2 10^3/uL (0.0-0.9); ABS Neutrophils 10.6 10^3/uL (1.5-7.6); ABS Nucleated RBC 0.01 10^3/ul; Hematocrit 41.2 % (35-45); Hemoglobin 13.5 g/dL (11.5-14.3); Lymphocyte % 5.8 %; Mean Corpuscular Hemoglobin 28.3 pg (27-33); Mean Corpuscular Hgb Conc 32.8 g/dL (31-36); Mean Corpuscular Volume 86.2 fL (80-97); Mean Platelet Volume 8.6 fL (7.5-11.2); Platelet Count 222 10^3/uL (150-450); Red Blood Count 4.79 10^6/uL (3.63-4.92); Red Cell Distribution Width 17.6 % (12-17); White Blood Count 11.5 10^3/uL (3.8-11.8)
[2023-08-23 13:14] LABS: Activated Partial Thrombo Time 42.9 seconds (26.0-38.0); INR 1.01 (0.83-1.13)
[2023-08-23 14:09] LABS: Albumin 4.5 g/dL (3.2-5.2); Albumin/Globulin Ratio 1.5 (1-3); Creatinine, Serum 0.76 mg/dL (0.51-0.95); Direct Bilirubin 0.1 mg/dL (0.03-0.18); HDL Cholesterol 80.8 mg/dL; Indirect Bilirubin 0.2 mg/dL (0.3-1.0); Potassium 3.9 mmol/L (3.5-5.0); Total Bilirubin 0.3 mg/dL (0.2-1.0); Total Protein 7.5 g/dL (6.4-8.9); eGFR CKD-EPI 90.2 (>60)
[2023-08-23 14:46] LABS: Urine Appearance Clear; Urine Bilirubin Negative (Negative); Urine Blood Trace (Negative); Urine Color Colorless; Urine Glucose Negative (Negative); Urine Ketones Trace (Negative); Urine Nitrite Negative (Negative); Urine Protein Negative (Negative); Urine Specific Gravity 1.017 (1.002-1.030); Urine Urobilinogen Negative (Negative)
[2023-08-23] MEDS ORDERED: Sulfur Hexaflouride MICROSPHR 25 MG VIAL IV ONE (15:51)
[2023-08-23 16:28] LABS: Prolactin 57.8 ng/mL (1.0-25.0)
[2023-08-23] MEDS: Enoxaparin 40 MG/0.4 ML SYR SUBCUT SCH (19:44)
[2023-08-23] MEDS: Aspirin EC 81 mg TAB.EC (enteric coated) PO SCH (19:45)
[2023-08-23] MEDS: HYDROcodone/ACETAMIN 5/325 mg TAB PO PRN (19:45)
[2023-08-23 20:39] LABS: Calcium 9.7 mg/dL (8.6-10.3); Creatinine, Serum 0.75 mg/dL (0.51-0.95); Potassium 3.5 mmol/L (3.5-5.0); eGFR CKD-EPI 91.7 (>60)
[2023-08-24 08:53] LABS: ABS Eosinophils 0.1 10^3/uL (0.0-0.5); ABS Lymphocytes 2.7 10^3/uL (1.0-4.8); ABS Monocytes 0.6 10^3/uL (0.0-0.9); ABS Neutrophils 5.2 10^3/uL (1.5-7.6); ABS Nucleated RBC 0.01 10^3/ul; Eosinophil % 0.6 %; Hematocrit 37.4 % (35-45); Hemoglobin 12.2 g/dL (11.5-14.3); Lymphocyte % 31.4 %; Mean Corpuscular Hemoglobin 28.1 pg (27-33); Mean Corpuscular Hgb Conc 32.5 g/dL (31-36); Mean Corpuscular Volume 86.2 fL (80-97); Mean Platelet Volume 9.1 fL (7.5-11.2); Nucleated Red Blood Cells % 0.1 %/100WBC (0.0-0.8); Platelet Count 213 10^3/uL (150-450); Red Blood Count 4.34 10^6/uL (3.63-4.92); Red Cell Distribution Width 17.4 % (12-17); White Blood Count 8.6 10^3/uL (3.8-11.8)
[2023-08-24] MEDS ORDERED: Aspirin EC 81 mg TAB.EC (enteric coated) PO SCH (09:00)
[2023-08-24 09:09] LABS: Magnesium 1.9 mg/dL (1.9-2.7)
[2023-08-24 13:54] LABS: Folate 3.31 ng/mL (5.90-24.80)
[2023-08-25] MEDS: Lidocaine PATCH 5% PATCH TRANSDERM SCH (00:13)
[2023-08-25 06:49] LABS: Calcium 8.9 mg/dL (8.6-10.3); Creatinine, Serum 0.95 mg/dL (0.51-0.95); Potassium 3.7 mmol/L (3.5-5.0)
[2023-08-25] MEDS: Iodixanol 320 (CONTRAST) 100 ML SDV IV ONE (08:59)
[2023-08-26 14:14] VITALS: BP 120/64
== END 2023-08-26 15:50 | disposition home or self-care (01) ==
LOC: EDHOLD 12:34 → ED 12:34 → SUATTDRO 14:03 → MEDTELE 16:11
PROVIDERS: ADMIT Student in an Organized Health Care Education/Training Program; ATTEND Internal Medicine